=== PATIENT | male | born 1980 ===

== ENCOUNTER 2020-07-29 12:23 | Inpatient (IN) | payer OTHER ==
[2020-07-29] MEDS ORDERED: SODIUM CHLORIDE 0.9% 1,000 ML IV STA ×2 (13:38)
[2020-07-29] MEDS ORDERED: THIAMINE 100 MG/ML 2 ML VIAL IM STA (13:39)
[2020-07-29] MEDS ORDERED: LORazepam 2 MG/ML INJ IV PRN (13:39)
[2020-07-29] MEDS: LORazepam 2 MG/ML INJ IV PRN ×5 (13:48→21:32)
--- NOTE | 2020-07-29 13:58 | ED ---
Seizure HPI - General Chief Complaint: Seizure Stated Complaint: Seizure-alcoholism Time Seen by Provider: 07/29/20 12:30 Source: patient, family Mode of arrival: wheelchair Limitations: no limitations - History of Present Illness Initial Comments: Patient is a 40-year-old male with past medical history of alcohol abuse who presents emergency department after he had a alcohol withdrawal seizure last night. Mother is at bedside and helps provide history. States that he normally drinks a pint and a fifth daily. They were attempting to wean the patient off of alcohol as he was reportedly supposed to go to take her heart at noon today. States that yesterday he drank a fifth however he started at 8 AM and drink slowly throughout the day. Around 1 AM the patient's sustained a 2 minute. Tonic-clonic seizure. Mother states that he did sustain a fall with possible head injury. Reports that she began giving him alcohol that she had stored in t he house as she thought that this was the reason why he was seizing. Patient has been drinking since that time and they did report to [place] at noon today. Due to the reported seizure, they referred him to the emergency department - Related Data Home Medications Medication Instructions Recorded Confirmed Biotin 5 mg PO DAILY 07/29/20 07/29/20 Gabapentin [Neurontin] 300 mg PO DIRECTED 07/29/20 07/29/20 Multivitamins, Thera [Multivitamin 1 tab PO DAILY 07/29/20 07/29/20 (formulary)] Sertraline [Zoloft] 25 mg PO DAILY 07/29/20 07/29/20 hydrOXYzine HCL [Atarax] 25 mg PO QID PRN 07/29/20 07/29/20 Allergies Allergy/AdvReac Type Severity Reaction Status Date / Time No Known Allergies Allergy Verified 07/29/20 16:34 Review of Systems ROS Statement: Those systems with pertinent positive or pertinent negative responses have been documented in the HPI. ROS Other: All systems not noted in ROS Statement are negative. Past Medical History Past Medical History: No Reported History History of Any Multi-Drug Resistant Organisms: None Reported Additional Past Surgical History / Comment(s): facial surgery Past Psychological History: Depression Smoking Status: Never smoker Past Alcohol Use History: Abuse Past Drug Use History: None Reported General Exam Limitations: altered mental status General appearance: alert, in no apparent distress, appears intoxicated Head exam: Present: atraumatic, normocephalic, normal inspection Eye exam: Present: normal appearance, PERRL, EOMI. Absent: scleral icterus, conjunctival injection, periorbital swelling ENT exam: Present: normal exam, mucous membranes moist Neck exam: Present: normal inspection. Absent: tenderness, meningismus, lymp hadenopathy Respiratory exam: Present: normal lung sounds bilaterally. Absent: respiratory distress, wheezes, rales, rhonchi, stridor Cardiovascular Exam: Present: regular rate, normal rhythm, normal heart sounds. Absent: systolic murmur, diastolic murmur, rubs, gallop, clicks GI/Abdominal exam: Present: soft, normal bowel sounds. Absent: distended, tenderness, guarding, rebound, rigid Extremities exam: Present: normal inspection, full ROM, normal capillary refill. Absent: tenderness, pedal edema, joint swelling, calf tenderness Back exam: Present: normal inspection Neurological exam: Present: alert, altered, CN II-XII intact Psychiatric exam: Present: normal affect, normal mood Skin exam: Present: warm, intact, normal color, diaphoretic. Absent: rash Course Vital Signs 07/29/20 07/29/20 07/29/20 12:28 14:51 17:00 Temperature 98.4 F Pulse Rate 76 57 L 65 Respiratory 16 18 18 Rate Blood Pressure 142/96 107/61 145/98 O2 Sat by Pulse 96 Oximetry 07/29/20 07/29/20 18:44 20:07 Temperature 98.8 F Pulse Rate 64 Respiratory 17 18 Rate Blood Pressure 118/68 O2 Sat by Pulse Oximetry Medical Decision Making - Medical Decision Making Upon arrival patient was placed in room 18. A thorough history and physical exam was performed 2 L of saline is administered followed by 100 mL per hour. Patient started on alcohol withdrawal protocol. Laboratory studies are conducted. Lactic acid 2.8. Alcohol 349. CT of the brain and spine is performed due to the reported falls which demonstrates no acute process. His ulcer discussed with the patient and his other. Patient be admitted to [facility] physicians. Spoke with Dr. Dolan who agreed to admit the patient. - Lab Data Result diagrams: 08/04/20 03:24 08/04/20 03:24 Lab Results 07/29/20 07/29/20 07/29/20 Range/Units 13:42 13:42 13:42 WBC 3.9 (3.8-10.6) k/uL RBC 4.50 (4.30-5.90) m/uL Hgb 15.7 (13.0-17.5) gm/dL Hct 44.8 (39.0-53.0) % MCV 99.6 (80.0-100.0) fL MCH 34.8 (25.0-35.0) pg MCHC 35.0 (31.0-37.0) g/dL RDW 12.7 (11.5-15.5) % Plt Count 109 L (150-450) k/uL MPV 7.8 Neutrophils % 57 % Lymphocytes % 35 % Monocytes % 6 % Eosinophils % 1 % Basophils % 1 % Neutrophils # 2.2 (1.3-7.7) k/uL Lymphocytes # 1.3 (1.0-4.8) k/uL Monocytes # 0.2 (0-1.0) k/uL Eosinophils # 0.0 (0-0.7) k/uL Basophils # 0.0 (0-0.2) k/uL Sodium 138 (137-145) mmol/L Potassium 4.4 (3.5-5.1) mmol/L Chloride 100 (98-107) mmol/L Carbon Dioxide 29 (22-30) mmol/L Anion Gap 9 mmol/L BUN 6 L (9-20) mg/dL Creatinine 0.62 L (0.66-1.25) mg/dL Est GFR (CKD-EPI)AfAm >90 (>60 ml/min/1.73 sqM) Est GFR (CKD-EPI)NonAf >90 (>60 ml/min/1.73 sqM) Glucose 104 H (74-99) mg/dL Lactic Ac Sepsis Rflx Plasma Lactic Acid Danny (0.7-2.0) mmol/L Calcium 8.3 L (8.4-10.2) mg/dL Magnesium 2.1 (1.6-2.3) mg/dL Total Bilirubin 1.1 (0.2-1.3) mg/dL AST 183 H (17-59) U/L ALT 91 H (4-49) U/L Alkaline Phosphatase 77 (38-126) U/L Total Protein 7.0 (6.3-8.2) g/dL Albumin 4.4 (3.5-5.0) g/dL Urine Color Yellow Urine Appearance Clear (Clear) Urine pH 6.5 (5.0-8.0) Ur Specific [place] 1.008 (1.001-1.035) Urine Protein Negative (Negative) Urine Glucose (UA) Negative (Negative) Urine Ketones Negative (Negative) Urine Blood Negative (Negative) Urine Nitrite Negative (Negative) Urine Bilirubin Negative (Negative) Urine Urobilinogen <2.0 (<2.0) mg/dL Ur Leukocyte Esterase Negative (Negative) Urine Opiates Screen Not Detected (NotDetected) Ur Oxycodone Screen Not Detected (NotDetected) Urine Methadone Screen Not Detected (NotDetected) Ur Propoxyphene Screen Not Detected (NotDetected) Ur Barbiturates Screen Not Detected (NotDetected) U Tricyclic Antidepress Not Detected (NotDetected) Ur Phencyclidine Scrn Not Detected (NotDetected) Ur Amphetamines Screen Not Detected (NotDetected) U Methamphetamines Scrn Not Detected (NotDetected) U Benzodiazepines Scrn Not Detected (NotDetected) Urine Cocaine Screen Not Detected (NotDetected) U Marijuana (THC) Screen Not Detected (NotDetected) Serum Alcohol 349 H* mg/dL 07/29/20 07/29/20 Range/Units 13:42 14:29 WBC (3.8-10.6) k/uL RBC (4.30-5.90) m/uL Hgb (13.0-17.5) gm/dL Hct (39.0-53.0) % MCV (80.0-100.0) fL MCH (25.0-35.0) pg MCHC (31.0-37.0) g/dL RDW (11.5-15.5) % Plt Count (150-450) k/uL MPV Neutrophils % % Lymphocytes % % Monocytes % % Eosinophils % % Basophils % % Neutrophils # (1.3-7.7) k/uL Lymphocytes # (1.0-4.8) k/uL Monocytes # (0-1.0) k/uL Eosinophils # (0-0.7) k/uL Basophils # (0-0.2) k/uL Sodium (137-145) mmol/L Potassium (3.5-5.1) mmol/L Chloride (98-107) mmol/L Carbon Dioxide (22-30) mmol/L Anion Gap mmol/L BUN (9-20) mg/dL Creatinine (0.66-1.25) mg/dL Est GFR (CKD-EPI)AfAm (>60 ml/min/1.73 sqM) Est GFR (CKD-EPI)NonAf (>60 ml/min/1.73 sqM) Glucose (74-99) mg/dL Lactic Ac Sepsis Rflx Y Plasma Lactic Acid Danny 2.8 H* (0.7-2.0) mmol/L Calcium (8.4-10.2) mg/dL Magnesium (1.6-2.3) mg/dL Total Bilirubin (0.2-1.3) mg/dL AST (17-59) U/L ALT (4-49) U/L Alkaline Phosphatase (38-126) U/L Total Protein (6.3-8.2) g/dL Albumin (3.5-5.0) g/dL Urine Color Urine Appearance (Clear) Urine pH (5.0-8.0) Ur Specific [place] (1.001-1.035) Urine Protein (Negative) Urine Glucose (UA) (Negative) Urine Ketones (Negative) Urine Blood (Negative) Urine Nitrite (Negative) Urine Bilirubin (Negative) Urine Urobilinogen (<2.0) mg/dL Ur Leukocyte Esterase (Negative) Urine Opiates Screen (NotDetected) Ur Oxycodone Screen (NotDetected) Urine Methadone Screen (NotDetected) Ur Propoxyphene Screen (NotDetected) Ur Barbiturates Screen (NotDetected) U Tricyclic Antidepress (NotDetected) Ur Phencyclidine Scrn (NotDetected) Ur Amphetamines Screen (NotDetected) U Methamphetamines Scrn (NotDetected) U Benzodiazepines Scrn (NotDetected) Urine Cocaine Screen (NotDetected) U Marijuana (THC) Screen (NotDetected) Serum Alcohol mg/dL - EKG Data EKG Comments: EKG demonstrates a sinus rhythm with a ventricular rate of 63. OR interval 162. QRS 120. QTC of 470. No acute ST segment elevations or depressions Disposition Clinical Impression: New onset seizure, Alcohol abuse, Fall Disposition: ADMITTED IP TO THIS HOSP Condition: Serious Is patient prescribed a controlled substance at d/c from ED?: No Decision to Admit Reason: Admit from EC Decision Date: 07/29/20 Decision Time: 15:18
[2020-07-29 14:04] LABS: Basophils % (A) 1 %; Eosinophils % (A) 1 %; HCT 44.8 % (39.0-53.0); HGB 15.7 gm/dL (13.0-17.5); Lymphocytes # (A) 1.3 k/uL (1.0-4.8); Lymphocytes % (A) 35 %; MCH 34.8 pg (25.0-35.0); MCV 99.6 fL (80.0-100.0); Mean Platelet Volume 7.8; Monocytes # (A) 0.2 k/uL (0-1.0); Monocytes % (A) 6 %; Neutrophils # (A) 2.2 k/uL (1.3-7.7); Neutrophils % (A) 57 %; Platelet Count 109 k/uL (150-450); RDW 12.7 % (11.5-15.5); WBC 3.9 k/uL (3.8-10.6)
[2020-07-29 14:17] LABS: ALT 91 U/L (4-49); AST 183 U/L (17-59); African American GFR (CKD) >90 (>60 ml/min/1.73 sqM); Albumin 4.4 g/dL (3.5-5.0); Alkaline Phosphatase 77 U/L (38-126); Anion Gap 9 mmol/L; Blood Urea Nitrogen 6 mg/dL (9-20); Calcium 8.3 mg/dL (8.4-10.2); Carbon Dioxide 29 mmol/L (22-30); Chloride 100 mmol/L (98-107); Glucose 104 mg/dL (74-99); Magnesium 2.1 mg/dL (1.6-2.3); Non-African American GFR(CKD) >90 (>60 ml/min/1.73 sqM); Potassium 4.4 mmol/L (3.5-5.1); Sodium 138 mmol/L (137-145); Total Bilirubin 1.1 mg/dL (0.2-1.3)
[2020-07-29 14:30] LABS: Alcohol 349 mg/dL
--- NOTE | 2020-07-29 14:51 | CT ---
EXAMINATION TYPE: CT brain devi lam con DATE OF EXAM: 07/29/2020 COMPARISON: NONE HISTORY: Fall, seizure, alcoholism. Headache and neck pain. CT DLP: 1547 mGycm. Automated Exposure Control for Dose Reduction was Utilized. TECHNIQUE: CT scan of the head and cervical spine are performed without contrast. FINDINGS: There is no acute intracranial hemorrhage or midline shift identified. Mild ventricular a nd sulcal prominence somewhat prominent for patient's chronologic age. Small left frontoparietal acut e scalp hematoma axial image 39. The calvarium is intact. The globes are intact and the visualized si nuses are clear. Cervical spine is visualized in its entirety from C1 through upper thoracic levels and demonstrates s light grade 1 retrolisthesis C4 on C5 and C5 on C6 without evidence of acute fracture or dislocation. Prevertebral soft tissue appears within normal limits. The C1-C2 articulation is within normal [place] its on the coronal images. Slight underlying scoliotic curvature on coronal images. Mild to moderate disc space narrowing with posterior spur disc complex effacing the anterior thecal sac at C6-C7 leve l sagittal image 39 for reference. Vertebral body heights are maintained. Review of axial images shows normal sized thyroid. Lung apices show no pneumothorax. IMPRESSION: 1. There is no acute fracture or dislocation evident in the cervical spine. 2. No acute intracranial hemorrhage or midline shift is seen. Small focal left frontoparietal acute s calp hematoma.
[2020-07-29] MEDS ORDERED: NALOXONE 0.4 MG/ML 1 ML VIAL IV PRN ×2 (15:18→15:31)
[2020-07-29] MEDS ORDERED: ONDANSETRON 4 MG/2 ML VIAL IVP PRN ×2 (15:18→15:28)
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
[2020-07-29] MEDS ORDERED: chlordiazePOXIDE 25 MG CAP PO SCH (18:00)
[2020-07-29 19:23] LABS: Appearance,Urine Clear (Clear); Bilirubin,Urine Negative (Negative); Blood,Urine Negative (Negative); Color,Urine Yellow; Glucose,Urine (UA) Negative (Negative); Ketones,Urine Negative (Negative); Leukocyte Esterase,Urine Negative (Negative); Nitrite,Urine Negative (Negative); PH, Urine 6.5 (5.0-8.0); Protein,Urine Negative (Negative); Specific Gravity,Urine 1.008 (1.001-1.035); Urobilinogen,Urine <2.0 mg/dL (<2.0)
[2020-07-29 19:34] LABS: Amphetamine Screen,Urine Not Detected (NotDetected); Barbiturate Screen,Urine Not Detected (NotDetected); Benzodiazepines Screen,Urine Not Detected (NotDetected); Cocaine Screen,Urine Not Detected (NotDetected); Methadone Screen, Urine Not Detected (NotDetected); Opiate Screen,Urine Not Detected (NotDetected); Oxycodone Screen, Urine Not Detected (NotDetected); Phencyclidine Screen,Urine Not Detected (NotDetected); Tricyclic Antidepressant,Urine Not Detected (NotDetected); Urn Cannabinoid Scrn Not Detected (NotDetected)
[2020-07-29] MEDS ORDERED: LORazepam 2 MG/ML INJ IV STA (22:10)
[2020-07-29] MEDS ORDERED: SODIUM CHLORIDE 0.9% 1,000 ML IV ONE (23:03)
[2020-07-29] MEDS: THIAMINE 100 MG TAB PO SCH (23:13)
[2020-07-30] MEDS ORDERED: LORazepam 2 MG/ML INJ IV STA ×2 (00:33→10:18)
[2020-07-30] MEDS: LORazepam 2 MG/ML INJ IV STA ×2 (00:39→09:03)
[2020-07-30] MEDS: LORazepam 2 MG/ML INJ IV PRN ×12 (01:51→23:10)
[2020-07-30 04:07] LABS: Glucose,Whole Blood 84 mg/dL (75-99)
[2020-07-30 06:42] LABS: Basophils % (A) 1 %; Eosinophils # (A) 0.1 k/uL (0-0.7); Eosinophils % (A) 3 %; HCT 36.3 % (39.0-53.0); HGB 13.1 gm/dL (13.0-17.5); Lymphocytes # (A) 0.8 k/uL (1.0-4.8); Lymphocytes % (A) 23 %; MCH 35.8 pg (25.0-35.0); MCHC 36.1 g/dL (31.0-37.0); MCV 99.4 fL (80.0-100.0); Mean Platelet Volume 9.9; Monocytes # (A) 0.2 k/uL (0-1.0); Monocytes % (A) 6 %; Neutrophils # (A) 2.1 k/uL (1.3-7.7); Neutrophils % (A) 66 %; RBC 3.65 m/uL (4.30-5.90); RDW 12.7 % (11.5-15.5); WBC 3.2 k/uL (3.8-10.6)
[2020-07-30 06:43] LABS: Prothrombin Time 10.7 sec (9.0-12.0)
[2020-07-30 06:46] LABS: African American GFR (CKD) >90 (>60 ml/min/1.73 sqM); Anion Gap 6 mmol/L; Blood Urea Nitrogen 4 mg/dL (9-20); Calcium 7.8 mg/dL (8.4-10.2); Carbon Dioxide 26 mmol/L (22-30); Chloride 102 mmol/L (98-107); Glucose 92 mg/dL (74-99); Magnesium 1.5 mg/dL (1.6-2.3); Non-African American GFR(CKD) >90 (>60 ml/min/1.73 sqM); Sodium 134 mmol/L (137-145)
[2020-07-30 06:50] LABS: Platelet Count 72 k/uL (150-450)
[2020-07-30 07:04] LABS: Lymphocytes # (M) 0.67 k/uL (1.0-4.8); Monocytes # (M) 0.32 k/uL (0-1.0); Neutrophils # (M) 2.21 k/uL (1.3-7.7); Neutrophils % (M) 69 %; Nucleated Red Blood Cells 0 /100 WBC (0-0); Total Cells Counted 100
[2020-07-30] MEDS: THIAMINE 100 MG TAB PO SCH ×3 (09:53→18:01)
[2020-07-30] MEDS: MULTIVITAMINS, THERA 1 EACH TAB PO SCH (09:53)
[2020-07-30] MEDS: FOLIC ACID 1 MG TAB PO SCH (09:53)
[2020-07-30] MEDS: ENOXAPARIN 40 MG/0.4 ML SYRINGE SQ SCH (10:14)
[2020-07-30] MEDS ORDERED: PHENobarbital SODIUM 130 MG/ML 1 ML VIAL IM STA (10:27)
[2020-07-30] MEDS ORDERED: RX INFO: IV CONTRAST WAS GIVEN 1 EACH MISC MISCELLANE PRN (10:43)
[2020-07-30] MEDS: DEXMEDETOMIDINE/0.9% NACL(PMX) 400 MCG in EMPTY BAG 1 BAG IV SCH ×3 (10:46→22:57)
[2020-07-30] MEDS: DEXTROSE 5%-0.45% NACL 1,000 ML IV SCH (11:44)
--- NOTE | 2020-07-30 14:16 | P.CNPUL ---
History of Present Illness Consult date: 07/30/20 Reason for consult: other (ICU management, acute alcohol withdrawal.) Chief complaint: Alcohol withdrawal History of present illness: This is a 40-year-old white male, history of alcohol abuse, patient has been drinking fifth plus a pint of hard liquor daily for the last 5 months. Patient is also known to have history of schizoaffective disorder. And has been treated with Zyprexa she hasn't been taking. Patient stopped drinking about 2 days ago. And last night the patient was brought in with a witnessed alcohol withdrawal seizure. Patient had a witnessed tonic-clonic seizure and he was supposed to report to [place] sometime today regarding his alcohol is him and alcohol withdrawal. Due to the reported seizure, patient mother brought him to ER last night. Patient was admitted initially as an overflow to the ICU, but this morning the patient was requiring more and more sedation, he was even placed on Precedex drip, and I was asked to see him on consultation. His status was changed from selective care unit to ICU. The patient himself is a very poor historian, seems to be fairly agitated, anxious, and a bit shaky. He is presently on Precedex, lorazepam, and he is also on phenobarbital. Patient is on room air, not in any respiratory distress. Review of Systems ROS unobtainable: due to mental status Past Medical History Past Medical History: No Reported History History of Any Multi-Drug Resistant Organisms: None Reported Additional Past Surgical History / Comment(s): facial surgery Past Psychological History: Depression Smoking Status: Never smoker, Unknown if ever smoked Past Alcohol Use History: Abuse Past Drug Use History: None Reported Medications and Allergies Home Medications Medication Instructions Recorded Confirmed Type Biotin 5 mg PO DAILY 07/29/20 07/29/20 History Gabapentin [Neurontin] 300 mg PO DIRECTED 07/29/20 07/29/20 History Multivitamins, Thera [Multivitamin 1 tab PO DAILY 07/29/20 07/29/20 History (formulary)] Sertraline [Zoloft] 25 mg PO DAILY 07/29/20 07/29/20 History hydrOXYzine HCL [Atarax] 25 mg PO QID PRN 07/29/20 07/29/20 History Allergies Allergy/AdvReac Type Severity Reaction Status Date / Time No Known Allergies Allergy Verified 07/29/20 16:34 Physical Exam Vitals: Vital Signs Temp Pulse Pulse Resp BP BP Pulse Ox 07/30/20 12:00 97.7 F 71 16 141/93 95 07/30/20 11:00 80 12 144/99 96 07/30/20 10:00 140 H 41 H 145/91 95 07/30/20 09:00 68 14 140/129 95 07/30/20 08:00 98.2 F 101 H 16 113/91 96 07/30/20 04:37 98.1 F 67 15 139/90 95 07/29/20 20:45 98.1 F 70 16 137/78 98 07/29/20 20:07 18 07/29/20 18:44 98.8 F 64 17 118/68 07/29/20 17:00 65 18 145/98 07/29/20 14:51 57 L 18 107/61 Intake and Output 07/29/20 07/30/20 07/30/20 22:59 06:59 14:59 Intake Total 200 29.257 Output Total 1500 1100 Balance -1500 -900 29.257 Intake: IV 200 Sodium Chloride 0.9% 1, 200 000 ml @ 100 mls/hr IV . Q10H [facility] Rx#:[id number] Intake, IV Titration 29.257 Amount Dexmedetomidine/0.9% NaCl 29.257 (Pmx) 400 mcg In Empty Bag 1 bag @ Titrate IV . Q0M [facility] Rx#:[id number] Output: Urine 1500 1100 Other: Voiding Method Urinal Urinal # Voids 1 1 Weight 102.058 kg Physical Exam: Revealed a 40-year-old male anxious, slightly tremulous, in no distress. Head: Atraumatic, normocephalic. HEENT: PERRLA, EOMI, nonicteric. [Neck is supple.] [No neck masses.] [No thyromegaly.] [No JVD.] Chest: [Clear throughout, no crackles, no rhonchi, no wheezes.] Cardiac Exam: [Normal S1 and S2, no S3 gallop, no murmur.] Abdomen: [Soft, nontender, no megaly, no rebound, no guarding, normal bowel sounds.] Extremities: [No clubbing, no edema, no cyanosis.] Neurological Exam: Alert, anxious, and slightly confused Psychiatric: Anxious mood, blunt affect, and noted to be a bit confused. Results - Laboratory Findings CBC and BMP: 07/30/20 04:44 07/30/20 04:44 PT/INR, D-dimer PT 10.7 sec (9.0-12.0) 07/30/20 04:44 INR 1.0 (<1.2) 07/30/20 04:44 Abnormal lab findings: Abnormal Labs 07/29/20 07/29/20 07/29/20 13:42 13:42 13:42 WBC RBC Hct MCH Plt Count 109 L Lymphocytes # Lymphocytes # (Manual) Sodium BUN 6 L Creatinine 0.62 L Glucose 104 H Plasma Lactic Acid Danny 2.8 H* Calcium 8.3 L Magnesium AST 183 H ALT 91 H Serum Alcohol 349 H* 07/29/20 07/29/20 07/29/20 16:56 19:33 22:45 WBC RBC Hct MCH Plt Count Lymphocytes # Lymphocytes # (Manual) Sodium BUN Creatinine Glucose Plasma Lactic Acid Danny 2.9 H* 3.2 H* 2.6 H* Calcium Magnesium AST ALT Serum Alcohol 07/30/20 07/30/20 07/30/20 01:57 04:44 04:44 WBC 3.2 L RBC 3.65 L Hct 36.3 L MCH 35.8 H Plt Count 72 L Lymphocytes # 0.8 L Lymphocytes # (Manual) 0.67 L Sodium 134 L BUN 4 L Creatinine 0.57 L Glucose Plasma Lactic Acid Danny 2.1 H* Calcium 7.8 L Magnesium 1.5 L AST ALT Serum Alcohol - Diagnostic Findings Additional studies: CT of the head and cervical spine was noted to be normal. Questioned small focal left frontoparietal scalp hematoma. Assessment and Plan Assessment: Impression: Acute alcohol withdrawal Alcohol intoxication Alcohol withdrawal seizure. History of schizoaffective disorder. Acute alcohol intoxication on presentation. Recommendation: Continue present treatment plan as per the admitting physician. Continue to monitor in the ICU. Continue Precedex. Continue Ativan and phenobarbital. Consider neurologic evaluation and possibly psychiatric evaluation. Will follow while in the ICU. Time with Patient: Greater than 30
[2020-07-30] MEDS ORDERED: PHENobarbital SODIUM 130 MG/ML 1 ML VIAL IM ONE ×3 (14:30→22:30)
--- NOTE | 2020-07-30 15:11 | P.PN ---
Subjective Progress Note Date: 07/30/20 Patient was stepped up to med-surg overnight, however, due to overflow issues, went to ICU for next level of care. This AM, patient was profoundly diaphoretic, hypertensive, tremulous despite escalating doses of ativan. Level of care upgraded to ICU, and pulmonary notified of status change. Objective - Vital Signs Vital signs: Vital Signs Temp 97.7 F 07/30/20 12:00 Pulse 71 07/30/20 12:00 Resp 16 07/30/20 12:00 BP 141/93 07/30/20 12:00 Pulse Ox 95 07/30/20 12:00 Intake & Output 07/29/20 07/30/20 07/30/20 18:59 06:59 18:59 Intake Total 200 29.257 Output Total 2600 Balance -2400 29.257 Weight 102.058 kg Intake: IV 200 Sodium Chloride 0.9% 1, 200 000 ml @ 100 mls/hr IV . Q10H [facility] Rx#:[id number] Intake, IV Titration 29.257 Amount Dexmedetomidine/0.9% NaCl 29.257 (Pmx) 400 mcg In Empty Bag 1 bag @ Titrate IV . Q0M [facility] Rx#:[id number] Output: Urine 2600 Other: Voiding Method Urinal Urinal # Voids 1 - Exam Gen: awake, alert, diaphoretic, tremulous HEENT: normocephalic, atraumatic, good hearing acuity, moist mucous membranes Resp: good air exchange, breathing comfortably with no accessory muscle use, clear to auscultation without wheezes CVS: good distal perfusion x 4, regular rate and rhythm without murmurs GI: soft, NTTP, ND : no SPT, no CVAT, heaton catheter not present MSK: no pitting edema, no clubbing Neuro: non-focal, moving all extremities, bilateral hand director career services weakness L > R, intact lower extremity strength, cranial nerves II, 3, 4, 6, intact, others were not evaluated due to participation Psych: cooperative, euthymic mood - Labs CBC & Chem 7: 07/30/20 04:44 07/30/20 04:44 Labs: Abnormal Lab Results - Last 24 Hours (Table) 07/29/20 07/29/20 07/29/20 Range/Units 16:56 19:33 22:45 WBC (3.8-10.6) k/uL RBC (4.30-5.90) m/uL Hct (39.0-53.0) % MCH (25.0-35.0) pg Plt Count (150-450) k/uL Lymphocytes # (1.0-4.8) k/uL Lymphocytes # (Manual) (1.0-4.8) k/uL Sodium (137-145) mmol/L BUN (9-20) mg/dL Creatinine (0.66-1.25) mg/dL Plasma Lactic Acid Danny 2.9 H* 3.2 H* 2.6 H* (0.7-2.0) mmol/L Calcium (8.4-10.2) mg/dL Magnesium (1.6-2.3) mg/dL 07/30/20 07/30/20 07/30/20 Range/Units 01:57 04:44 04:44 WBC 3.2 L (3.8-10.6) k/uL RBC 3.65 L (4.30-5.90) m/uL Hct 36.3 L (39.0-53.0) % MCH 35.8 H (25.0-35.0) pg Plt Count 72 L (150-450) k/uL Lymphocytes # 0.8 L (1.0-4.8) k/uL Lymphocytes # (Manual) 0.67 L (1.0-4.8) k/uL Sodium 134 L (137-145) mmol/L BUN 4 L (9-20) mg/dL Creatinine 0.57 L (0.66-1.25) mg/dL Plasma Lactic Acid Danny 2.1 H* (0.7-2.0) mmol/L Calcium 7.8 L (8.4-10.2) mg/dL Magnesium 1.5 L (1.6-2.3) mg/dL Assessment and Plan Assessment: 1. Alcohol withdrawal syndrome 2. Alcohol intoxication 3. Alcohol abuse disorder, severe 4. Bilateral Handgrip Weakness 40 year old man with alcohol abuse disorder presented with Alcohol withdrawal syndrome despite ETOH level of 349, and was admitted for supervised detox. Plan: - admit to telemetry, seizure precautions - neuro checks - ativan 1mg PRN for CIWA 8-9 + ativan 2mg PRN for CIWA 10-15 + ativan 4mg PRN for CIWA > 15 - librium 25mg QID --> d/c'd on 07/30 - started on phenobarbitol taper 07/30 - started on precedex gtt 07/30 - UA/UTox = normal/negative - thiamine/folate/MVI - ETOH cessation counseling s/p withdrawal - CT C/T spine with contrast Full Code enoxaparin 40mg SQ daily
--- NOTE | 2020-07-30 16:59 | P.CNNES ---
History of Present Illness Consult date: 07/30/20 Requesting physician: Violet Adams Reason for Consult: New onset seizure History of Present Illness: Patient is a 40-year-old male came to the hospital yesterday at 12:23 AM for a seizure. Patient's mother has reported that patient normally drinks a pint and a fifth daily for the last 5 months. Patient also has reported history of schizoaffective disorder. They were attempting to wean the patient off the alcohol. The day before arrival, he drank a fifth that he started at 8 AM and drink slowly throughout the day. At around 1 AM patient sustained a 2 minute tonic-clonic seizure. Mother mentioned that he did sustain a fall with possible head injury. Patient was brought to the ER and was started on alcohol wi thdrawal protocol. Lactic acid was 2.8. Patient was placed in ICU because of requiring high dose of Precedex. Today he has received 10 mg of Ativan since 7 AM, also on maximal dose of Precedex 0.7 mg. Patient also has been started on phenobarbital because of seizure risk. Patient is in withdrawals. Patient is very shaky, tremulous, profusely sweating. Per nursing report, patient has been having full body tremoring, almost appearing like withdrawals, which patient's mother also reported, therefore uncertain if it was a seizure or just while and shakes from alcoholism/alcohol withdrawal. Patient at this time states that his that he is feeling "not great". Patient states that he is noticing generalized restlessness. He states that he has been drinking heavily on and off for several years. He does not use any drugs. Vital signs on arrival pressure 142/96, pulse rate 76, temperature 98.4 Blood test shows WBC 3.9, hemoglobin 15.7 with elevated MCV 99.6. Platelets are 109. Electrolytes are normal, renal functions normal, hepatic panel with AST 183, ALT 91, calcium 8.3. UA negative. Urine drug screen negative, blood alcohol level positive at 349. Gongora virus PCR negative. CT head showed no acute fracture or dislocation. No acute intracranial hemorrhage or midline shift. Small focal left frontoparietal acute scalp hematoma. EKG shows normal sinus rhythm, left anterior fascicular block. Review of Systems Patient denies headache. ROS unobtainable: due to mental status Past Medical History Past Medical History: No Reported History History of Any Multi-Drug Resistant Organisms: None Reported Additional Past Surgical History / Comment(s): facial surgery Past Psychological History: Depression Smoking Status: Never smoker, Unknown if ever smoked Past Alcohol Use History: Abuse Past Drug Use History: None Reported Medications and Allergies Home Medications Medication Instructions Recorded Confirmed Type Biotin 5 mg PO DAILY 07/29/20 07/29/20 History Gabapentin [Neurontin] 300 mg PO DIRECTED 07/29/20 07/29/20 History Multivitamins, Thera [Multivitamin 1 tab PO DAILY 07/29/20 07/29/20 History (formulary)] Sertraline [Zoloft] 25 mg PO DAILY 07/29/20 07/29/20 History hydrOXYzine HCL [Atarax] 25 mg PO QID PRN 07/29/20 07/29/20 History Allergies Allergy/AdvReac Type Severity Reaction Status Date / Time No Known Allergies Allergy Verified 07/29/20 16:34 Physical Examination - Vital Signs Vital Signs: Vital Signs Temp Pulse Pulse Resp BP BP Pulse Ox 07/30/20 12:00 97.7 F 71 16 141/93 95 07/30/20 11:00 80 12 144/99 96 07/30/20 10:00 140 H 41 H 145/91 95 07/30/20 09:00 68 14 140/129 95 07/30/20 08:00 98.2 F 101 H 16 113/91 96 07/30/20 04:37 98.1 F 67 15 139/90 95 07/29/20 20:45 98.1 F 70 16 137/78 98 07/29/20 20:07 18 07/29/20 18:44 98.8 F 64 17 118/68 07/29/20 17:00 65 18 145/98 Intake and Output 07/29/20 07/30/20 07/30/20 22:59 06:59 14:59 Intake Total 200 29.257 Output Total 1500 1100 Balance -1500 -900 29.257 Intake: IV 200 Sodium Chloride 0.9% 1, 200 000 ml @ 100 mls/hr IV . Q10H [facility] Rx#:[id number] Intake, IV Titration 29.257 Amount Dexmedetomidine/0.9% NaCl 29.257 (Pmx) 400 mcg In Empty Bag 1 bag @ Titrate IV . Q0M [facility] Rx#:[id number] Output: Urine 1500 1100 Other: Voiding Method Urinal Urinal # Voids 1 1 Weight 102.058 kg On examination patient is a middle aged male, who is in obvious prodromal's, very shaky, gets worse when he gets anxious. He is profusely sweating. He knows that he is in [facility] in [facility]. Speech and language functions difficult to assess but no obvious aphasia or dysarthria. On cranial exception his pupils are slightly dilated, about 6 mm reacting to 4 mm bilaterally. Visual carter appears full, face is symmetric and tongue protrudes the midline. Muscle strength appears normal, although he did not cooperate well because of all the shakes. His tone is increased, with significant tremors. Reflexes are brisk and plantars are withdrawal. Sensations is equal. He is very tremulous for [id number] testing. Bulk of muscles is normal. On general examination there is no carotid bruit, S1 and S2 audible. Abdomen soft nontender. Peripheral pulses present. Results - Laboratory Findings CBC and BMP: 07/30/20 04:44 07/30/20 04:44 Abnormal Lab Findings: Abnormal Labs 07/29/20 07/29/20 07/29/20 13:42 13:42 13:42 WBC RBC Hct MCH Plt Count 109 L Lymphocytes # Lymphocytes # (Manual) Sodium BUN 6 L Creatinine 0.62 L Glucose 104 H Plasma Lactic Acid Danny 2.8 H* Calcium 8.3 L Magnesium AST 183 H ALT 91 H Serum Alcohol 349 H* 07/29/20 07/29/20 07/29/20 16:56 19:33 22:45 WBC RBC Hct MCH Plt Count Lymphocytes # Lymphocytes # (Manual) Sodium BUN Creatinine Glucose Plasma Lactic Acid Danny 2.9 H* 3.2 H* 2.6 H* Calcium Magnesium AST ALT Serum Alcohol 07/30/20 07/30/20 07/30/20 01:57 04:44 04:44 WBC 3.2 L RBC 3.65 L Hct 36.3 L MCH 35.8 H Plt Count 72 L Lymphocytes # 0.8 L Lymphocytes # (Manual) 0.67 L Sodium 134 L BUN 4 L Creatinine 0.57 L Glucose Plasma Lactic Acid Danny 2.1 H* Calcium 7.8 L Magnesium 1.5 L AST ALT Serum Alcohol Assessment and Plan Assessment: * New onset seizure, likely from alcoholism versus alcohol withdrawal. * Delirium tremens. * History of alcoholism * Schizoaffective disorder. Plan: * Continue [facility] protocol for alcohol withdrawals. * Patient currently on Precedex, Ativan and phenobarbital as well for alcohol withdrawal and seizure prophylaxis. Patient still somewhat agitated, very shaky. * No indication for EEG, as the seizure was likely alcohol related. * We will follow clinically.
--- NOTE | 2020-07-30 19:40 | CT ---
EXAMINATION TYPE: CT CervThoracic spine w con DATE OF EXAM: 07/30/2020 COMPARISON: CT cervical spine from yesterday. HISTORY: Arm numbness. Numbness in hands. Neck and back pain. CT DLP: 1404.6 mGycm Automated exposure control for dose reduction was used. CONTRAST: Performed with IV Contrast, patient injected with 100 mL of Isovue 300. FINDINGS: CT of the entire spine shows slight dextroconvex scoliotic curvature centered upper to mid thoracic s pine. Vertebral body heights and disc space heights are fairly well maintained. Spinal canal grossly preserved. Posterior spur disc complex effaces the anterior thecal sac at C6-C7 level. Vertebral body heights and disc space heights are fairly well maintained. Imaging was only performed to mid L4 leve l. No acute fracture or dislocation is seen. No suspicious postcontrast enhancement. Paraspinal muscl e bulk is maintained. Visualized liver is markedly hypodense consistent with diffuse fatty infiltration. IMPRESSION: No acute findings are evident.
[2020-07-30] MEDS: PHENobarbital SODIUM 130 MG/ML 1 ML VIAL IV SCH (20:50)
[2020-07-31] MEDS: LORazepam 2 MG/ML INJ IV PRN ×13 (01:29→20:55)
[2020-07-31] MEDS ORDERED: PHENobarbital SODIUM 130 MG/ML 1 ML VIAL IM ONE (02:30)
[2020-07-31 04:53] LABS: ALT 76 U/L (4-49); AST 128 U/L (17-59); African American GFR (CKD) >90 (>60 ml/min/1.73 sqM); Albumin 3.1 g/dL (3.5-5.0); Alkaline Phosphatase 53 U/L (38-126); Anion Gap 7 mmol/L; Blood Urea Nitrogen 4 mg/dL (9-20); Calcium 8.3 mg/dL (8.4-10.2); Carbon Dioxide 25 mmol/L (22-30); Chloride 101 mmol/L (98-107); Glucose 125 mg/dL (74-99); Magnesium 1.7 mg/dL (1.6-2.3); Non-African American GFR(CKD) >90 (>60 ml/min/1.73 sqM); Potassium 3.4 mmol/L (3.5-5.1); Sodium 133 mmol/L (137-145); Total Bilirubin 1.3 mg/dL (0.2-1.3); Total Protein 5.3 g/dL (6.3-8.2)
[2020-07-31 05:05] LABS: Basophils % (A) 1 %; Eosinophils # (A) 0.1 k/uL (0-0.7); Eosinophils % (A) 2 %; HCT 38.5 % (39.0-53.0); HGB 12.7 gm/dL (13.0-17.5); Lymphocytes # (A) 0.5 k/uL (1.0-4.8); Lymphocytes % (A) 17 %; MCH 33.1 pg (25.0-35.0); MCV 100.2 fL (80.0-100.0); Mean Platelet Volume 8.5; Monocytes # (A) 0.2 k/uL (0-1.0); Monocytes % (A) 6 %; Neutrophils # (A) 2.3 k/uL (1.3-7.7); Neutrophils % (A) 73 %; RBC 3.85 m/uL (4.30-5.90); RDW 13.1 % (11.5-15.5); WBC 3.1 k/uL (3.8-10.6)
[2020-07-31] MEDS ORDERED: Potassium Replacement Protocol 1 EACH MISC MISCELLANE PRN (05:17)
[2020-07-31] MEDS ORDERED: Magnesium Replacement Protocol 1 EACH MISC MISCELLANE PRN (05:18)
[2020-07-31 05:19] LABS: Platelet Count 74 k/uL (150-450)
[2020-07-31] MEDS: POTASSIUM CHLORIDE 10 MEQ in WATER FOR INJECTION 1 100ML.BAG IVPB SCH ×4 (05:32→09:26)
[2020-07-31] MEDS: MAGNESIUM SULFATE-D5W PMX 1 GM in DEXTROSE/WATER 1 100ML.BAG IVPB SCH ×2 (05:58→07:03)
[2020-07-31] MEDS: THIAMINE 100 MG TAB PO SCH ×2 (06:44→18:46)
[2020-07-31] MEDS: DEXMEDETOMIDINE/0.9% NACL(PMX) 400 MCG in EMPTY BAG 1 BAG IV SCH ×3 (06:47→20:56)
[2020-07-31] MEDS: PHENobarbital SODIUM 130 MG/ML 1 ML VIAL IV SCH ×2 (08:00→20:55)
[2020-07-31] MEDS: FOLIC ACID 1 MG TAB PO SCH (08:00)
[2020-07-31] MEDS: ENOXAPARIN 40 MG/0.4 ML SYRINGE SQ SCH (08:00)
[2020-07-31] MEDS: MULTIVITAMINS, THERA 1 EACH TAB PO SCH (08:00)
--- NOTE | 2020-07-31 10:31 | P.PN ---
Subjective Progress Note Date: 07/31/20 Had episodes of tremulousness, diaphoresis this AM, but mentation was clear. dex gtt increased to 0.6, then to 0.7. Objective - Vital Signs Vital signs: Vital Signs Temp 98.1 F 07/31/20 08:00 Pulse 59 L 07/31/20 09:00 Resp 15 07/31/20 09:00 BP 156/88 07/31/20 09:00 Pulse Ox 97 07/31/20 09:00 Intake & Output 07/30/20 07/31/20 07/31/20 18:59 06:59 18:59 Intake Total 940.101 7392.378 669.205 Output Total 880 3235 705 Balance -91.806 -906.622 -35.795 Weight 103.8 kg Intake: IV 700 1200 400 Dextrose 5%-0.45% NaCl 1, 700 1200 300 000 ml @ 100 mls/hr IV . Q10H [facility] Rx#:[id number] Potassium Chloride 10 meq 100 In Water For Injection 1 100ml.bag @ 100 mls/hr IVPB Q1HR [facility] Rx#: [id number] Intake, IV Titration 88.194 168.378 29.205 Amount Dexmedetomidine/0.9% NaCl 88.194 168.378 29.205 (Pmx) 400 mcg In Empty Bag 1 bag @ Titrate IV . Q0M [facility] Rx#:[id number] Oral 960 240 Output: Urine 880 3235 705 Other: Voiding Method Indwelling Catheter Indwelling Catheter Indwelling Catheter - Exam Gen: awake, alert, diaphoretic, tremulous HEENT: normocephalic, atraumatic, good hearing acuity, moist mucous membranes Resp: good air exchange, breathing comfortably with no accessory muscle use, clear to auscultation without wheezes CVS: good distal perfusion x 4, regular rate and rhythm without murmurs GI: soft, NTTP, ND : no SPT, no CVAT, heaton catheter not present MSK: no pitting edema, no clubbing Neuro: non-focal, moving all extremities, bilateral hand [employer] sports [employer] weakness L > R, intact lower extremity strength, cranial nerves II, 3, 4, 6, intact, others were not evaluated due to participation Psych: cooperative, euthymic mood - Labs CBC & Chem 7: 07/31/20 04:02 07/31/20 04:02 Labs: Abnormal Lab Results - Last 24 Hours (Table) 07/31/20 07/31/20 Range/Units 04:02 04:02 WBC 3.1 L (3.8-10.6) k/uL RBC 3.85 L (4.30-5.90) m/uL Hgb 12.7 L (13.0-17.5) gm/dL Hct 38.5 L (39.0-53.0) % MCV 100.2 H (80.0-100.0) fL Plt Count 74 L (150-450) k/uL Lymphocytes # 0.5 L (1.0-4.8) k/uL Sodium 133 L (137-145) mmol/L Potassium 3.4 L (3.5-5.1) mmol/L BUN 4 L (9-20) mg/dL Creatinine 0.53 L (0.66-1.25) mg/dL Glucose 125 H (74-99) mg/dL Calcium 8.3 L (8.4-10.2) mg/dL AST 128 H (17-59) U/L ALT 76 H (4-49) U/L Total Protein 5.3 L (6.3-8.2) g/dL Albumin 3.1 L (3.5-5.0) g/dL Assessment and Plan Assessment: 1. Alcohol withdrawal syndrome 2. Alcohol intoxication 3. Alcohol abuse disorder, severe 4. Bilateral Handgrip Weakness 40 year old man with alcohol abuse disorder presented with Alcohol withdrawal syndrome despite ETOH level of 349, and was admitted for supervised detox. Plan: - admit to telemetry, seizure precautions - neuro checks - ativan 1mg PRN for CIWA 8-9 + ativan 2mg PRN for CIWA 10-15 + ativan 4mg PRN for CIWA > 15 - librium 25mg QID --> d/c'd on 07/30 - started on phenobarbitol taper 07/30 - started on precedex gtt 07/30 - UA/UTox = normal/negative - thiamine/folate/MVI - ETOH cessation counseling s/p withdrawal - CT C/T spine with contrast = no acute pathology - consideration of MRI s/p withdrawal; spoke with mother about this on 07/30 and she indicated this is a chronic issue Full Code enoxaparin 40mg SQ daily
[2020-07-31] MEDS: DEXTROSE 5%-0.45% NACL 1,000 ML IV SCH ×2 (10:38→21:00)
[2020-07-31] MEDS ORDERED: DEXMEDETOMIDINE/0.9% NACL(PMX) 400 MCG in EMPTY BAG 1 BAG IV SCH (13:00)
--- NOTE | 2020-07-31 13:06 | P.PN ---
Subjective Progress Note Date: 07/31/20 Patient was sedated in the beginning, on waking him up, patient appears better than yesterday, less tremulous. Still very confused., Knows it is July 2020 and that he is in the hospital. States could not remember the name of the hospital. Speech is clear, but slow, prolonged latency time to answer qu estions. No obvious aphasia. Tone is increased in the arms and legs. Patient does get tremulous when he becomes anxious. Reflexes are 2+ and plantars are withdrawal. No obvious seizures. Objective - Vital Signs Vital signs: Vital Signs Temp 97.9 F 07/31/20 12:00 Pulse 85 07/31/20 12:00 Resp 14 07/31/20 12:00 BP 156/110 07/31/20 12:00 Pulse Ox 96 07/31/20 12:00 Intake & Output 07/30/20 07/31/20 07/31/20 18:59 06:59 18:59 Intake Total 278.853 2099.378 1140.000 Output Total 880 3235 1285 Balance -91.806 -906.622 -145.000 Weight 103.8 kg Intake: IV 700 1200 800 Dextrose 5%-0.45% NaCl 1, 700 1200 600 000 ml @ 100 mls/hr IV . Q10H [facility] Rx#:[id number] Potassium Chloride 10 meq 200 In Water For Injection 1 100ml.bag @ 100 mls/hr IVPB Q1HR [facility] Rx#: [id number] Intake, IV Titration 88.194 168.378 100.000 Amount Dexmedetomidine/0.9% NaCl 88.194 168.378 100.000 (Pmx) 400 mcg In Empty Bag 1 bag @ Titrate IV . Q0M [facility] Rx#:[id number] Oral 960 240 Output: Urine 880 3235 1285 Other: Voiding Method Indwelling Catheter Indwelling Catheter Indwelling Catheter - Labs CBC & Chem 7: 07/31/20 04:02 07/31/20 04:02 Labs: Abnormal Lab Results - Last 24 Hours (Table) 07/31/20 07/31/20 Range/Units 04:02 04:02 WBC 3.1 L (3.8-10.6) k/uL RBC 3.85 L (4.30-5.90) m/uL Hgb 12.7 L (13.0-17.5) gm/dL Hct 38.5 L (39.0-53.0) % MCV 100.2 H (80.0-100.0) fL Plt Count 74 L (150-450) k/uL Lymphocytes # 0.5 L (1.0-4.8) k/uL Sodium 133 L (137-145) mmol/L Potassium 3.4 L (3.5-5.1) mmol/L BUN 4 L (9-20) mg/dL Creatinine 0.53 L (0.66-1.25) mg/dL Glucose 125 H (74-99) mg/dL Calcium 8.3 L (8.4-10.2) mg/dL AST 128 H (17-59) U/L ALT 76 H (4-49) U/L Total Protein 5.3 L (6.3-8.2) g/dL Albumin 3.1 L (3.5-5.0) g/dL Assessment and Plan Assessment: * New onset seizure, likely from alcoholism versus alcohol withdrawal. * Delirium tremens. * History of alcoholism * Schizoaffective disorder. Plan: * Continue [facility] protocol for alcohol withdrawals. * Patient currently on Precedex, Ativan and phenobarbital as well for alcohol withdrawal and seizure prophylaxis. Patient appears slightly better today, less shaky. * No indication for EEG, as the seizure was likely alcohol related. * Patient should not drive for 6 months as per [place] state law, climb ladders, operate dangerous machinery or unsupervised swimming. * Neurology will sign off. Please reconsult neurology if any concerns.
--- NOTE | 2020-07-31 14:41 | P.PN ---
Subjective Progress Note Date: 07/31/20 Principal diagnosis: Alcohol withdrawal and new onset seizure This is a 40-year-old white male, history of alcohol abuse, patient has been drinking fifth plus a pint of hard liquor daily for the last 5 months. Patient is also known to have history of schizoaffective disorder. And has been treated with Zyprexa she hasn't been taking. Patient stopped drinking about 2 days ago. And last night the patient was brought in with a witnessed alcohol withdrawal seizure. Patient had a witnessed tonic-clonic seizure and he was supposed to report to [place] sometime today regarding his alcohol is him and alcohol withdrawal. Due to the reported seizure, patient mother brought him to ER last night. Patient was admitted initially as an overflow to the ICU, but this morning the patient was requiring more and more sedation, he was even placed on Precedex drip, and I was asked to see him on consultation. His status was changed from selective care unit to ICU. The patient himself is a very poor historian, seems to be fairly agitated, anxious, and a bit shaky. He is pr esently on Precedex, lorazepam, and he is also on phenobarbital. Patient is on room air, not in any respiratory distress. Patient was reevaluated today on 07/31/2020, remains in the ICU, remains on P recedex, he is on 0.7 mcg/kg per hour. No seizures since admission. Patient remains on Ativan and on phenobarbital. Continues to have relatively high CIWA score. Patient is being closely monitored in the ICU for worsening, call withdrawal. But so far seems to be doing better than expected. WBC count is 3.1 hemoglobin is 12.7. Lactulose are normal potassium is a bit low being corrected as per protocol. Renal profile is normal. Objective - Vital Signs Vital signs: Vital Signs Temp 97.9 F 07/31/20 12:00 Pulse 56 L 07/31/20 14:00 Resp 11 L 07/31/20 14:00 BP 109/75 07/31/20 14:00 Pulse Ox 96 07/31/20 13:00 Intake & Output 07/30/20 07/31/20 07/31/20 18:59 06:59 18:59 Intake Total 867.735 6959.378 1340.000 Output Total 880 3235 2125 Balance -91.806 -906.622 -785.000 Weight 103.8 kg Intake: IV 700 1200 1000 Dextrose 5%-0.45% NaCl 1, 700 1200 800 000 ml @ 100 mls/hr IV . Q10H [facility] Rx#:[id number] Potassium Chloride 10 meq 200 In Water For Injection 1 100ml.bag @ 100 mls/hr IVPB Q1HR [facility] Rx#: [id number] Intake, IV Titration 88.194 168.378 100.000 Amount Dexmedetomidine/0.9% NaCl 88.194 168.378 100.000 (Pmx) 400 mcg In Empty Bag 1 bag @ Titrate IV . Q0M [facility] Rx#:[id number] Oral 960 240 Output: Urine 880 3235 2125 Other: Voiding Method Indwelling Catheter Indwelling Catheter Indwelling Catheter - Exam Physical Exam: Revealed a 40-year-old male anxious, sleeping, in no distress, on room air. Head: Atraumatic, normocephalic. HEENT: PERRLA, EOMI, nonicteric. [Neck is supple.] [No neck masses.] [No thyromegaly.] [No JVD.] Chest: [Clear throughout, no crackles, no rhonchi, no wheezes.] Cardiac Exam: [Normal S1 and S2, no S3 gallop, no murmur.] Abdomen: [Soft, nontender, no megaly, no rebound, no guarding, normal bowel sounds.] Extremities: [No clubbing, no edema, no cyanosis.] Neurological Exam: Patient is calm and sleeping, did not get disturbed. Psychiatric: Not assessed. - Labs CBC & Chem 7: 07/31/20 04:02 07/31/20 04:02 Labs: Abnormal Lab Results - Last 24 Hours (Table) 07/31/20 07/31/20 Range/Units 04:02 04:02 WBC 3.1 L (3.8-10.6) k/uL RBC 3.85 L (4.30-5.90) m/uL Hgb 12.7 L (13.0-17.5) gm/dL Hct 38.5 L (39.0-53.0) % MCV 100.2 H (80.0-100.0) fL Plt Count 74 L (150-450) k/uL Lymphocytes # 0.5 L (1.0-4.8) k/uL Sodium 133 L (137-145) mmol/L Potassium 3.4 L (3.5-5.1) mmol/L BUN 4 L (9-20) mg/dL Creatinine 0.53 L (0.66-1.25) mg/dL Glucose 125 H (74-99) mg/dL Calcium 8.3 L (8.4-10.2) mg/dL AST 128 H (17-59) U/L ALT 76 H (4-49) U/L Total Protein 5.3 L (6.3-8.2) g/dL Albumin 3.1 L (3.5-5.0) g/dL Assessment and Plan Assessment: Impression: Acute alcohol withdrawal Alcohol intoxication Alcohol withdrawal seizure. History of schizoaffective disorder. Acute alcohol intoxication on presentation. Recommendation: Continue CIWA protocol. Continue to monitor in the ICU. Continue Precedex. I just dose accordingly. Continue Ativan and phenobarbital. Will follow while in the ICU. Time with Patient: Less than 30
[2020-07-31] MEDS ORDERED: PHENobarbital SODIUM 130 MG/ML 1 ML VIAL IM SCH ×2 (16:30)
[2020-08-01] MEDS: LORazepam 2 MG/ML INJ IV PRN ×10 (01:01→22:45)
[2020-08-01 04:17] LABS: Basophils % (A) 0 %; Eosinophils # (A) 0.1 k/uL (0-0.7); Eosinophils % (A) 2 %; HCT 40.3 % (39.0-53.0); HGB 14.4 gm/dL (13.0-17.5); Lymphocytes # (A) 0.7 k/uL (1.0-4.8); Lymphocytes % (A) 17 %; MCH 35.6 pg (25.0-35.0); MCHC 35.8 g/dL (31.0-37.0); MCV 99.5 fL (80.0-100.0); Mean Platelet Volume 8.1; Monocytes # (A) 0.3 k/uL (0-1.0); Monocytes % (A) 7 %; Neutrophils # (A) 2.7 k/uL (1.3-7.7); RBC 4.05 m/uL (4.30-5.90); RDW 12.3 % (11.5-15.5); WBC 3.8 k/uL (3.8-10.6)
[2020-08-01 04:29] LABS: African American GFR (CKD) >90 (>60 ml/min/1.73 sqM); Anion Gap 7 mmol/L; Blood Urea Nitrogen 3 mg/dL (9-20); Calcium 8.8 mg/dL (8.4-10.2); Carbon Dioxide 27 mmol/L (22-30); Chloride 101 mmol/L (98-107); Glucose 102 mg/dL (74-99); Magnesium 2.1 mg/dL (1.6-2.3); Non-African American GFR(CKD) >90 (>60 ml/min/1.73 sqM); Potassium 4.1 mmol/L (3.5-5.1); Sodium 135 mmol/L (137-145)
[2020-08-01 05:31] LABS: Platelet Count 81 k/uL (150-450)
[2020-08-01] MEDS: DEXTROSE 5%-0.45% NACL 1,000 ML IV SCH ×2 (05:37→16:40)
[2020-08-01] MEDS: ENOXAPARIN 40 MG/0.4 ML SYRINGE SQ SCH (08:10)
[2020-08-01] MEDS: MULTIVITAMINS, THERA 1 EACH TAB PO SCH (08:10)
[2020-08-01] MEDS: THIAMINE 100 MG TAB PO SCH ×2 (08:10→16:53)
[2020-08-01] MEDS: FOLIC ACID 1 MG TAB PO SCH (08:10)
[2020-08-01] MEDS: PHENobarbital SODIUM 130 MG/ML 1 ML VIAL IV SCH ×3 (08:11→22:44)
[2020-08-01] MEDS: HALOPERIDOL LACTATE 5 MG/ML 1 ML VIAL IVP PRN ×3 (09:34→19:56)
[2020-08-01] MEDS: DEXMEDETOMIDINE/0.9% NACL(PMX) 400 MCG in EMPTY BAG 1 BAG IV SCH ×2 (10:43→16:29)
--- NOTE | 2020-08-01 13:04 | P.PN ---
Subjective Progress Note Date: 08/01/20 Principal diagnosis: Alcohol withdrawal and new onset seizure This is a 40-year-old white male, history of alcohol abuse, patient has been drinking fifth plus a pint of hard liquor daily for the last 5 months. Patient is also known to have history of schizoaffective disorder. And has been treated with Zyprexa she hasn't been taking. Patient stopped drinking about 2 days ago. And last night the patient was brought in with a witnessed alcohol withdrawal seizure. Patient had a witnessed tonic-clonic seizure and he was supposed to report to [place] sometime today regarding his alcohol is him and alcohol withdrawal. Due to the reported seizure, patient mother brought him to ER last night. Patient was admitted initially as an overflow to the ICU, but this morning the patient was requiring more and more sedation, he was even placed on Precedex drip, and I was asked to see him on consultation. His status was changed from selective care unit to ICU. The patient himself is a very poor historian, seems to be fairly agitated, anxious, and a bit shaky. He is pr esently on Precedex, lorazepam, and he is also on phenobarbital. Patient is on room air, not in any respiratory distress. Patient was reevaluated today on 07/31/2020, remains in the ICU, remains on P recedex, he is on 0.7 mcg/kg per hour. No seizures since admission. Patient remains on Ativan and on phenobarbital. Continues to have relatively high CIWA score. Patient is being closely monitored in the ICU for worsening, call withdrawal. But so far seems to be doing better than expected. WBC count is 3.1 hemoglobin is 12.7. Lactulose are normal potassium is a bit low being corrected as per protocol. Renal profile is normal. Patient was reevaluated today on 08/01/2020, remains in the ICU, remains on Precedex, same dose as above, patient is requiring significant amount of Ativan and phenobarbital to keep him calm. Today I suggested trial of Haldol since the patient has history of schizoaffective disorder, and he received 2 mg of Haldol IV push, and that seems to be calming him down significantly. We'll continue the Haldol, and I will arrange for a psychiatric consultation on this patient. Clearly the patient has a significant psychiatric history, and may benefit from medications for psychosis. Labs today are basically unremarkable including normal CBC, normal basic metabolic profile and normal renal profile. Objective - Vital Signs Vital signs: Vital Signs Temp 98.1 F 08/01/20 12:00 Pulse 110 H 08/01/20 12:00 Resp 14 08/01/20 12:00 BP 105/73 08/01/20 12:00 Pulse Ox 96 08/01/20 12:00 Intake & Output 07/31/20 08/01/20 08/01/20 18:59 06:59 18:59 Intake Total 4540.000 2820.000 627.593 Output Total 3125 1525 1000 Balance 8100.338 5266.000 -372.407 Weight 101.1 kg Intake: IV 1400 1100 600 Dextrose 5%-0.45% NaCl 1, 1200 1100 600 000 ml @ 100 mls/hr IV . Q10H [facility] Rx#:[id number] Potassium Chloride 10 meq 200 In Water For Injection 1 100ml.bag @ 100 mls/hr IVPB Q1HR [facility] Rx#: [id number] Intake, IV Titration 200.000 100.000 27.593 Amount Dexmedetomidine/0.9% NaCl 200.000 100.000 27.593 (Pmx) 400 mcg In Empty Bag 1 bag @ Titrate IV . Q0M [facility] Rx#:[id number] Oral 2940 1620 Output: Urine 3125 1525 1000 Other: Voiding Method Indwelling Catheter Indwelling Catheter Indwelling Catheter - Exam Physical Exam: Revealed a 40-year-old male anxious, and seems to be diaphoretic at times easily agitated. And gets tremulous quite easily Head: Atraumatic, normocephalic. HEENT: PERRLA, EOMI, nonicteric. [Neck is supple.] [No neck masses.] [No thyromegaly.] [No JVD.] Chest: [Clear throughout, no crackles, no rhonchi, no wheezes.] Cardiac Exam: [Normal S1 and S2, no S3 gallop, no murmur.] Abdomen: [Soft, nontender, no megaly, no rebound, no guarding, normal bowel sounds.] Extremities: [No clubbing, no edema, no cyanosis.] Neurological Exam: Anxious, tremulous, diaphoretic. oriented 3. Psychiatric: Anxious mood, blunt affect, normal mental status. - Labs CBC & Chem 7: 08/01/20 03:48 08/01/20 03:48 Labs: Abnormal Lab Results - Last 24 Hours (Table) 08/01/20 08/01/20 Range/Units 03:48 03:48 RBC 4.05 L (4.30-5.90) m/uL MCH 35.6 H (25.0-35.0) pg Plt Count 81 L (150-450) k/uL Lymphocytes # 0.7 L (1.0-4.8) k/uL Sodium 135 L (137-145) mmol/L BUN 3 L (9-20) mg/dL Creatinine 0.61 L (0.66-1.25) mg/dL Glucose 102 H (74-99) mg/dL Assessment and Plan Assessment: Impression: Acute alcohol withdrawal Alcohol intoxication Alcohol withdrawal seizure. History of schizoaffective disorder. Acute alcohol intoxication on presentation. Recommendation: Continue CIWA protocol. Continue to monitor in the ICU. Continue Precedex. We will add Haldol. Will consult psychiatry. Continue Ativan and phenobarbital. Will follow while in the ICU. Time with Patient: Less than 30
[2020-08-01] MEDS ORDERED: cloNIDine 0.1 MG/24HR PATCH TRANSDERM SCH (13:30)
--- NOTE | 2020-08-01 13:38 | P.PN ---
Subjective Progress Note Date: 08/01/20 Had episodes of tremulousness, diaphoresis; dex is maxed out, phenobarb is 65mg IV BID, haldol added, still requiring q1h pushes of ativan Objective - Vital Signs Vital signs: Vital Signs Temp 98.1 F 08/01/20 12:00 Pulse 110 H 08/01/20 13:00 Resp 20 08/01/20 13:00 BP 185/169 08/01/20 13:00 Pulse Ox 96 08/01/20 13:00 Intake & Output 07/31/20 08/01/20 08/01/20 18:59 06:59 18:59 Intake Total 4540.000 2820.000 627.593 Output Total 3125 1525 1000 Balance 6854.409 3356.000 -372.407 Weight 101.1 kg Intake: IV 1400 1100 600 Dextrose 5%-0.45% NaCl 1, 1200 1100 600 000 ml @ 100 mls/hr IV . Q10H RAMESH Rx#:[id number] Potassium Chloride 10 meq 200 In Water For Injection 1 100ml.bag @ 100 mls/hr IVPB Q1HR RAMESH Rx#: [id number] Intake, IV Titration 200.000 100.000 27.593 Amount Dexmedetomidine/0.9% NaCl 200.000 100.000 27.593 (Pmx) 400 mcg In Empty Bag 1 bag @ Titrate IV . 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 Alcohol withdrawal syndrome 2. Alcohol intoxication 3. Alcohol abuse disorder, severe 4. Bilateral Handgrip Weakness 40 year old man with alcohol abuse disorder presented with Alcohol withdrawal syndrome despite ETOH level of 349, and was admitted for supervised detox. Plan: - admit to telemetry, seizure precautions - neuro checks - neurology and pulmonary consultation much appreciated - ativan 1mg PRN for CIWA 8-9 + ativan 2mg PRN for CIWA 10-15 + ativan 4mg PRN for CIWA > 15 - librium 25mg QID --> d/c'd on 07/30 - started on phenobarbitol 07/30 --> increased from 65 BID to 65 TID on 08/01 - started on precedex gtt 07/30 - started on clonidine 0.1mg PO TID on 08/01 - started on haldol 08/01 - UA/UTox = normal/negative - thiamine/folate/MVI - ETOH cessation counseling s/p withdrawal - CT C/T spine with contrast = no acute pathology - spoke with mother about this on 07/30 and she indicated this is a chronic issue, therefore will defer MRI - psych consult, pending Full Code enoxaparin 40mg SQ daily
[2020-08-02] MEDS: LORazepam 2 MG/ML INJ IV PRN ×9 (01:06→23:36)
[2020-08-02] MEDS: HALOPERIDOL LACTATE 5 MG/ML 1 ML VIAL IVP PRN ×4 (03:32→21:44)
[2020-08-02 04:59] LABS: Basophils % (A) 0 %; Eosinophils # (A) 0.1 k/uL (0-0.7); Eosinophils % (A) 3 %; HCT 40.7 % (39.0-53.0); Lymphocytes # (A) 0.6 k/uL (1.0-4.8); Lymphocytes % (A) 18 %; MCH 34.4 pg (25.0-35.0); MCHC 34.4 g/dL (31.0-37.0); MCV 100.1 fL (80.0-100.0); Monocytes # (A) 0.3 k/uL (0-1.0); Monocytes % (A) 9 %; Neutrophils # (A) 2.3 k/uL (1.3-7.7); Neutrophils % (A) 67 %; RBC 4.07 m/uL (4.30-5.90); RDW 12.6 % (11.5-15.5); WBC 3.4 k/uL (3.8-10.6)
[2020-08-02 05:01] LABS: Platelet Count 94 k/uL (150-450)
[2020-08-02] MEDS: DEXTROSE 5%-0.45% NACL 1,000 ML IV SCH ×3 (05:07→23:35)
[2020-08-02 05:17] LABS: African American GFR (CKD) >90 (>60 ml/min/1.73 sqM); Anion Gap 8 mmol/L; Blood Urea Nitrogen 5 mg/dL (9-20); Calcium 8.7 mg/dL (8.4-10.2); Carbon Dioxide 24 mmol/L (22-30); Chloride 103 mmol/L (98-107); Glucose 112 mg/dL (74-99); Non-African American GFR(CKD) >90 (>60 ml/min/1.73 sqM); Potassium 3.8 mmol/L (3.5-5.1); Sodium 135 mmol/L (137-145)
[2020-08-02] MEDS ORDERED: POTASSIUM CHLORIDE ER 20 MEQ TAB.ER PO SCH (06:00)
[2020-08-02] MEDS: THIAMINE 100 MG TAB PO SCH ×2 (07:22→15:56)
[2020-08-02] MEDS: FOLIC ACID 1 MG TAB PO SCH (08:10)
[2020-08-02] MEDS: MULTIVITAMINS, THERA 1 EACH TAB PO SCH (08:10)
[2020-08-02] MEDS: ENOXAPARIN 40 MG/0.4 ML SYRINGE SQ SCH (08:10)
[2020-08-02] MEDS: PHENobarbital SODIUM 130 MG/ML 1 ML VIAL IV SCH ×3 (10:01→21:02)
[2020-08-02] MEDS: DEXMEDETOMIDINE/0.9% NACL(PMX) 400 MCG in EMPTY BAG 1 BAG IV SCH ×2 (10:34→16:45)
--- NOTE | 2020-08-02 12:58 | P.PN ---
Subjective Progress Note Date: 08/02/20 Still requiring high doses of sedatives. Pt resting comfortably on my assessment today. Objective - Vital Signs Vital signs: Vital Signs Temp 98.4 F 08/02/20 12:00 Pulse 87 08/02/20 12:00 Resp 22 08/02/20 12:00 BP 118/77 08/02/20 12:00 Pulse Ox 98 08/02/20 12:00 Intake & Output 08/01/20 08/02/20 08/02/20 17:59 06:59 18:59 Intake Total 600 Output Total 455 Balance 145 Weight Intake: IV 600 Dextrose 5%-0.45% NaCl 1, 600 000 ml @ 100 mls/hr IV . Q10H RAMESH Rx#:[id number] Intake, IV Titration Amount Dexmedetomidine/0.9% NaCl (Pmx) 400 mcg In Empty Bag 1 bag @ Titrate IV . 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 Alcohol withdrawal syndrome 2. Alcohol intoxication 3. Alcohol abuse disorder, severe 4. Bilateral Handgrip Weakness 40 year old man with alcohol abuse disorder presented with Alcohol withdrawal syndrome despite ETOH level of 349, and was admitted for supervised detox. Plan: - admit to telemetry, seizure precautions - neuro checks - neurology and pulmonary consultation much appreciated - ativan 1mg PRN for CIWA 8-9 + ativan 2mg PRN for CIWA 10-15 + ativan 4mg PRN for CIWA > 15 - librium 25mg QID --> d/c'd on 07/30 - started on phenobarbitol 07/30 --> increased from 65 BID to 65 TID on 08/01 - started on precedex gtt 07/30 - started on clonidine 0.1mg PO TID on 08/01 - started on haldol 08/01 - UA/UTox = normal/negative - thiamine/folate/MVI - ETOH cessation counseling s/p withdrawal - CT C/T spine with contrast = no acute pathology - spoke with mother about this on 07/30 and she indicated this is a chronic issue, therefore will defer MRI - psych consult, pending Full Code enoxaparin 40mg SQ daily
--- NOTE | 2020-08-02 14:13 | P.PN ---
Subjective Progress Note Date: 08/02/20 Principal diagnosis: Alcohol withdrawal and new onset seizure This is a 40-year-old white male, history of alcohol abuse, patient has been drinking fifth plus a pint of hard liquor daily for the last 5 months. Patient is also known to have history of schizoaffective disorder. And has been treated with Zyprexa she hasn't been taking. Patient stopped drinking about 2 days ago. And last night the patient was brought in with a witnessed alcohol withdrawal seizure. Patient had a witnessed tonic-clonic seizure and he was supposed to report to [place] sometime today regarding his alcohol is him and alcohol withdrawal. Due to the reported seizure, patient mother brought him to ER last night. Patient was admitted initially as an overflow to the ICU, but this morning the patient was requiring more and more sedation, he was even placed on Precedex drip, and I was asked to see him on consultation. His status was changed from selective care unit to ICU. The patient himself is a very poor historian, seems to be fairly agitated, anxious, and a bit shaky. He is pr esently on Precedex, lorazepam, and he is also on phenobarbital. Patient is on room air, not in any respiratory distress. Patient was reevaluated today on 07/31/2020, remains in the ICU, remains on P recedex, he is on 0.7 mcg/kg per hour. No seizures since admission. Patient remains on Ativan and on phenobarbital. Continues to have relatively high CIWA score. Patient is being closely monitored in the ICU for worsening, call withdrawal. But so far seems to be doing better than expected. WBC count is 3.1 hemoglobin is 12.7. Lactulose are normal potassium is a bit low being corrected as per protocol. Renal profile is normal. Patient was reevaluated today on 08/01/2020, remains in the ICU, remains on Precedex, same dose as above, patient is requiring significant amount of Ativan and phenobarbital to keep him calm. Today I suggested trial of Haldol since the patient has history of schizoaffective disorder, and he received 2 mg of Haldol IV push, and that seems to be calming him down significantly. We'll continue the Haldol, and I will arrange for a psychiatric consultation on this patient. Clearly the patient has a significant psychiatric history, and may benefit from medications for psychosis. Labs today are basically unremarkable including normal CBC, normal basic metabolic profile and normal renal profile. Patient was reevaluated today on 08/02/2020, remains in the ICU, remains on significant amount of sedation including Precedex, Ativan, phenobarbital, and intermittently Haldol. Patient seems to be fairly calm this morning, less diaphoretic, in no distress, remains on room air. His Precedex is at 0.7 mcg/kg/m, and his IV fluid is 100 mL per hour. CBC today is relatively normal electrolytes are normal renal profile is normal, liver enzymes are slightly elev ated. Objective - Vital Signs Vital signs: Vital Signs Temp 98.4 F 08/02/20 12:00 Pulse 62 08/02/20 13:00 Resp 14 08/02/20 13:00 BP 153/102 08/02/20 13:00 Pulse Ox 98 08/02/20 13:00 Intake & Output 08/01/20 08/02/20 08/02/20 17:59 06:59 18:59 Intake Total 600 Output Total 455 Balance 145 Weight Intake: IV 600 Dextrose 5%-0.45% NaCl 1, 600 000 ml @ 100 mls/hr IV . Q10H RAMESH Rx#:[id number] Intake, IV Titration Amount Dexmedetomidine/0.9% NaCl (Pmx) 400 mcg In Empty Bag 1 bag @ Titrate IV . Q0M RAMESH Rx#:[id number] Oral Output: Urine 455 Other: Voiding Method Indwelling Catheter # Bowel Movements - Exam Physical Exam: Revealed a 40-year-old male anxious, and seems to be diaphoretic at times easily agitated. And gets tremulous quite easily Head: Atraumatic, normocephalic. HEENT: PERRLA, EOMI, nonicteric. [Neck is supple.] [No neck masses.] [No thyromegaly.] [No JVD.] Chest: [Clear throughout, no crackles, no rhonchi, no wheezes.] Cardiac Exam: [Normal S1 and S2, no S3 gallop, no murmur.] Abdomen: [Soft, nontender, no megaly, no rebound, no guarding, normal bowel sounds.] Extremities: [No clubbing, no edema, no cyanosis.] Neurological Exam: Anxious, tremulous, diaphoretic. oriented 3. Psychiatric: Anxious mood, blunt affect, normal mental status. - Labs CBC & Chem 7: 08/02/20 04:38 08/02/20 04:38 Labs: Abnormal Lab Results - Last 24 Hours (Table) 08/02/20 08/02/20 Range/Units 04:38 04:38 WBC 3.4 L (3.8-10.6) k/uL RBC 4.07 L (4.30-5.90) m/uL MCV 100.1 H (80.0-100.0) fL Plt Count 94 L (150-450) k/uL Lymphocytes # 0.6 L (1.0-4.8) k/uL Sodium 135 L (137-145) mmol/L BUN 5 L (9-20) mg/dL Creatinine 0.57 L (0.66-1.25) mg/dL Glucose 112 H (74-99) mg/dL Assessment and Plan Assessment: Impression: Acute alcohol withdrawal Alcohol intoxication Alcohol withdrawal seizure. History of schizoaffective disorder. Acute alcohol intoxication on presentation. Recommendation: Continue CIWA protocol. Continue to monitor in the ICU. Continue Precedex. Continue Haldol when necessary. Yet to be seen by psychiatry on consultation for his underlying schizoaffective disorder. Continue Ativan and phenobarbital. Will follow while in the ICU. Time with Patient: Less than 30
[2020-08-02] MEDS: cloNIDine HCL 0.1 MG TAB PO SCH ×2 (15:56→21:02)
[2020-08-03] MEDS: HALOPERIDOL LACTATE 5 MG/ML 1 ML VIAL IVP PRN ×2 (01:03→05:55)
[2020-08-03] MEDS: LORazepam 2 MG/ML INJ IV PRN ×9 (02:32→21:20)
[2020-08-03 03:53] LABS: Basophils % (A) 0 %; Eosinophils # (A) 0.1 k/uL (0-0.7); Eosinophils % (A) 3 %; HCT 40.9 % (39.0-53.0); Lymphocytes # (A) 0.7 k/uL (1.0-4.8); Lymphocytes % (A) 18 %; MCH 34.4 pg (25.0-35.0); MCHC 34.2 g/dL (31.0-37.0); MCV 100.7 fL (80.0-100.0); Mean Platelet Volume 8.4; Monocytes # (A) 0.3 k/uL (0-1.0); Monocytes % (A) 8 %; Neutrophils # (A) 2.6 k/uL (1.3-7.7); Neutrophils % (A) 68 %; Platelet Count 101 k/uL (150-450); RBC 4.06 m/uL (4.30-5.90); RDW 12.7 % (11.5-15.5); WBC 3.8 k/uL (3.8-10.6)
[2020-08-03 04:03] LABS: African American GFR (CKD) >90 (>60 ml/min/1.73 sqM); Anion Gap 5 mmol/L; Blood Urea Nitrogen 5 mg/dL (9-20); Calcium 8.7 mg/dL (8.4-10.2); Carbon Dioxide 27 mmol/L (22-30); Chloride 103 mmol/L (98-107); Glucose 131 mg/dL (74-99); Non-African American GFR(CKD) >90 (>60 ml/min/1.73 sqM); Sodium 135 mmol/L (137-145)
[2020-08-03] MEDS: ENOXAPARIN 40 MG/0.4 ML SYRINGE SQ SCH (07:43)
[2020-08-03] MEDS: THIAMINE 100 MG TAB PO SCH ×2 (07:44→16:01)
[2020-08-03] MEDS: MULTIVITAMINS, THERA 1 EACH TAB PO SCH (07:44)
[2020-08-03] MEDS: PHENobarbital SODIUM 130 MG/ML 1 ML VIAL IV SCH ×2 (07:44→16:01)
[2020-08-03] MEDS: FOLIC ACID 1 MG TAB PO SCH (07:44)
[2020-08-03] MEDS: cloNIDine HCL 0.1 MG TAB PO SCH ×3 (07:44→21:20)
--- NOTE | 2020-08-03 08:56 | P.PN ---
Subjective Progress Note Date: 08/03/20 Pt is awake and oriented. Asks if he can go home today. Has limited insight into medical issues. Psych consult pending. Precedex gtt titrated off. Objective - Vital Signs Vital signs: Vital Signs Temp 97.8 F 08/03/20 08:00 Pulse 121 H 08/03/20 08:00 Resp 29 H 08/03/20 08:00 BP 158/114 08/03/20 08:00 Pulse Ox 99 08/03/20 08:00 Intake & Output 08/02/20 08/03/20 08/03/20 18:59 06:59 18:59 Intake Total 4111.872 7589.008 Output Total 1210 2085 Balance 121.257 -808.992 Weight 100.8 kg Intake: IV 1300 1200 Dextrose 5%-0.45% NaCl 1, 1300 1200 000 ml @ 100 mls/hr IV . Q10H RAMESH Rx#:[id number] Intake, IV Titration 31.257 76.008 Amount Dexmedetomidine/0.9% NaCl 31.257 76.008 (Pmx) 400 mcg In Empty Bag 1 bag @ Titrate IV . 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 Alcohol withdrawal syndrome 2. Alcohol intoxication 3. Alcohol abuse disorder, severe 4. Bilateral Handgrip Weakness 40 year old man with alcohol abuse disorder presented with Alcohol withdrawal syndrome despite ETOH level of 349, and was admitted for supervised detox. Plan: - admit to telemetry, seizure precautions - neuro checks - neurology and pulmonary consultation much appreciated - ativan 1mg PRN for CIWA 8-9 + ativan 2mg PRN for CIWA 10-15 + ativan 4mg PRN for CIWA > 15 - librium 25mg QID --> d/c'd on 07/30 - started on phenobarbitol 07/30 --> increased from 65 BID to 65 TID on 08/01 --> 65 BID on 08/03 - started on precedex gtt 07/30 --> d/c'd 08/02 - started on clonidine 0.1mg PO TID on 08/01 - started on haldol 08/01 - UA/UTox = normal/negative - thiamine/folate/MVI - ETOH cessation counseling s/p withdrawal - CT C/T spine with contrast = no acute pathology - spoke with mother about this on 07/30 and she indicated this is a chronic issue, therefore will defer MRI - psych consult, pending Full Code enoxaparin 40mg SQ daily
[2020-08-03] MEDS: DEXTROSE 5%-0.45% NACL 1,000 ML IV SCH ×2 (09:36→16:01)
--- NOTE | 2020-08-03 09:52 | P.PN ---
Subjective Progress Note Date: 08/03/20 Principal diagnosis: Acute EtOH withdrawal, acute alcoholic withdrawal seizures This is a 40-year-old white male, history of alcohol abuse, patient has been drinking fifth plus a pint of hard liquor daily for the last 5 months. Patient is also known to have history of schizoaffective disorder. And has been treated with Zyprexa she hasn't been taking. Patient stopped drinking about 2 days ago. And last night the patient was brought in with a witnessed alcohol withdrawal seizure. Patient had a witnessed tonic-clonic seizure and he was supposed to report to [place] sometime today regarding his alcohol is him and alcohol withdrawal. Due to the reported seizure, patient mother brought him to ER last night. Patient was admitted initially as an overflow to the ICU, but this morning the patient was requiring more and more sedation, he was even placed on Precedex drip, and I was asked to see him on consultation. His status was changed from selective care unit to ICU. The patient himself is a very poor historian, seems to be fairly agitated, anxious, and a bit shaky. He is presently on Precedex, lorazepam, and he is also on phenobarbital. Patient is on room air, not in any respiratory distress. Patient was reevaluated today on 07/31/2020, remains in the ICU, remains on Precedex, he is on 0.7 mcg/kg per hour. No seizures since admission. Patient remains on Ativan and on phenobarbital. Continues to have relatively high CIWA score. Patient is being closely monitored in the ICU for worsening, call withdrawal. But so far seems to be doing better than expected. WBC count is 3.1 hemoglobin is 12.7. Lactulose are normal potassium is a bit low being corrected as per protocol. Renal profile is normal. Patient was reevaluated today on 08/01/2020, remains in the ICU, remains on Precedex, same dose as above, patient is requiring significant amount of Ativan and phenobarbital to keep him calm. Today I suggested trial of Haldol since the patient has history of schizoaffective disorder, and he received 2 mg of Haldol IV push, and that seems to be calming him down significantly. We'll continue the Haldol, and I will arrange for a psychiatric consultation on this patient. Clearly the patient has a significant psychiatric history, and may benefit from medications for psychosis. Labs today are basically unremarkable including normal CBC, normal basic metabolic profile and normal renal profile. Patient was reevaluated today on 08/02/2020, remains in the ICU, remains on significant amount of sedation including Precedex, Ativan, phenobarbital, and intermittently Haldol. Patient seems to be fairly calm this morning, less diaphoretic, in no distress, remains on room air. His Precedex is at 0.7 mcg/kg/m, and his IV fluid is 100 mL per hour. CBC today is relatively normal electrolytes are normal renal profile is normal, liver enzymes are slightly elevated. On 08/03/2020 patient seen in follow-up in intensive care unit, he is more awake, he is cooperative, he still a little shaky, he is oriented 3, answers questions appropriate, no seizure activity, he remains on the CIWA protocol. He has received 10 mg of Ativan overnight in addition to phenobarbital 65 mg 3 times daily, Precedex has been weaned off since yesterday, he's been comfortably, room air pulse ox 98%, he is on D5 half-normal seen at a rate of 100 ML per hour, his last CIWA scale from 645 this morning was 18 and is an improvement from CIWA scores at 34, 48 hours ago. Pulse ox of 99%, remains tachycardic, with a rate between 104-121, in sinus mechanism, he is afebrile. Patient is receiving thiamine and folic acid replacement. No nausea vomiting, tolerating oral diet. No acute events overnight, still on the drowsy. Objective - Vital Signs Vital signs: Vital Signs Temp 97.8 F 08/03/20 08:00 Pulse 121 H 08/03/20 08:00 Resp 29 H 08/03/20 08:00 BP 158/114 08/03/20 08:00 Pulse Ox 99 08/03/20 08:00 Intake & Output 08/02/20 08/03/20 08/03/20 18:59 06:59 18:59 Intake Total 4374.892 8334.008 Output Total 1210 2085 Balance 121.257 -808.992 Weight 100.8 kg Intake: IV 1300 1200 Dextrose 5%-0.45% NaCl 1, 1300 1200 000 ml @ 100 mls/hr IV . Q10H RAMESH Rx#:[id number] Intake, IV Titration 31.257 76.008 Amount Dexmedetomidine/0.9% NaCl 31.257 76.008 (Pmx) 400 mcg In Empty Bag 1 bag @ Titrate IV . Q0M RAMESH Rx#:[id number] Output: Urine 1210 2085 Other: Voiding Method Indwelling Catheter Indwelling Catheter Indwelling Catheter - Exam GENERAL EXAM: 40-year-old white male, normal, with pulse ox of 99%, drowsy, easily arousable, shaky comfortable in no apparent distress. HEAD: Normocephalic/atraumatic. EYES: Normal reaction of pupils, equal size. Conjunctiva pink, sclera white. NOSE: Clear with pink turbinates. THROAT: No erythema or exudates. NECK: No masses, no JVD, no thyroid enlargement, no adenopathy. CHEST: No chest wall deformity. Symmetrical expansion. LUNGS: Equal air entry with no crackles, wheeze, rhonchi or dullness. CVS: Regular rate and rhythm, normal S1 and S2, no gallops, no murmurs, no rubs ABDOMEN: Soft, nontender. No hepatosplenomegaly, normal bowel sounds, no guarding or rigidity. EXTREMITIES: No clubbing, no edema, no cyanosis, 2+ pulses and upper and lower extremities. MUSCULOSKELETAL: Muscle strength and tone normal. SPINE: No scoliosis or deformity SKIN: No rashes CENTRAL NERVOUS SYSTEM: Drowsy, arousable,. No focal deficits, tone is normal in all 4 extremities. - Labs CBC & Chem 7: 08/03/20 03:37 08/03/20 03:37 Labs: Abnormal Lab Results - Last 24 Hours (Table) 08/03/20 08/03/20 Range/Units 03:37 03:37 RBC 4.06 L (4.30-5.90) m/uL MCV 100.7 H (80.0-100.0) fL Plt Count 101 L (150-450) k/uL Lymphocytes # 0.7 L (1.0-4.8) k/uL Sodium 135 L (137-145) mmol/L BUN 5 L (9-20) mg/dL Creatinine 0.57 L (0.66-1.25) mg/dL Glucose 131 H (74-99) mg/dL Assessment and Plan Plan: Assessment: #1. Acute alcohol withdrawal syndrome #2. Acute alcohol withdrawal seizures #3. Alcohol intoxication #4. History of schizoaffective disorder Plan: Continue Ativan per CIWA protocol, continue phenobarbital, and this is being weaned down by the attending physicians, continue aspiration precautions, overall CIWA scale is improving, no seizure activity, still very drowsy and tachycardic and shaky we'll continue to monitor the patient in the ICU for another 24 hours. GI and DVT prophylaxis, following I performed a history & physical examination of the patient and discussed their management with my nurse practitioner, Tanja Silverio. I reviewed the nurse practitioner's note and agree with the documented findings and plan of care. Lung sounds are positive for clear breath sounds . The findings and the i mpression was discussed with the patient. I attest to the documentation by the nurse practitioner. Time with Patient: Less than 30
[2020-08-03] MEDS: busPIRone HCl 10 MG TAB PO PRN (16:25)
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
[2020-08-03] MEDS: OLANZapine 5 MG TAB PO SCH (20:01)
[2020-08-03] MEDS ORDERED: PHENobarbital SODIUM 130 MG/ML 1 ML VIAL IV SCH (21:00)
[2020-08-04] MEDS: LORazepam 2 MG/ML INJ IV PRN ×4 (00:15→22:24)
[2020-08-04] MEDS: DEXTROSE 5%-0.45% NACL 1,000 ML IV SCH (03:25)
[2020-08-04 03:45] LABS: HCT 38.6 % (39.0-53.0); HGB 13.1 gm/dL (13.0-17.5); MCH 34.7 pg (25.0-35.0); MCV 102.1 fL (80.0-100.0); Macrocytosis Slight; Mean Platelet Volume 8.2; Platelet Count 104 k/uL (150-450); RBC 3.78 m/uL (4.30-5.90); WBC 2.9 k/uL (3.8-10.6)
[2020-08-04 03:58] LABS: African American GFR (CKD) >90 (>60 ml/min/1.73 sqM); Anion Gap 3 mmol/L; Blood Urea Nitrogen 4 mg/dL (9-20); Calcium 8.5 mg/dL (8.4-10.2); Carbon Dioxide 27 mmol/L (22-30); Chloride 106 mmol/L (98-107); Glucose 100 mg/dL (74-99); Non-African American GFR(CKD) >90 (>60 ml/min/1.73 sqM); Potassium 3.6 mmol/L (3.5-5.1); Sodium 136 mmol/L (137-145)
[2020-08-04] MEDS: busPIRone HCl 10 MG TAB PO PRN ×2 (04:54→16:10)
[2020-08-04] MEDS ORDERED: POTASSIUM CHLORIDE ER 20 MEQ TAB.ER PO SCH (05:00)
[2020-08-04] MEDS: THIAMINE 100 MG TAB PO SCH ×2 (06:26→18:34)
[2020-08-04] MEDS: ENOXAPARIN 40 MG/0.4 ML SYRINGE SQ SCH (07:57)
[2020-08-04] MEDS: FOLIC ACID 1 MG TAB PO SCH (07:57)
[2020-08-04] MEDS: cloNIDine HCL 0.1 MG TAB PO SCH (07:57)
[2020-08-04] MEDS: MULTIVITAMINS, THERA 1 EACH TAB PO SCH (07:57)
--- NOTE | 2020-08-04 10:18 | P.PN ---
Subjective Progress Note Date: 08/04/20 Principal diagnosis: Acute EtOH withdrawal, acute alcoholic withdrawal seizures This is a 40-year-old white male, history of alcohol abuse, patient has been drinking fifth plus a pint of hard liquor daily for the last 5 months. Patient is also known to have history of schizoaffective disorder. And has been treated with Zyprexa she hasn't been taking. Patient stopped drinking about 2 days ago. And last night the patient was brought in with a witnessed alcohol withdrawal seizure. Patient had a witnessed tonic-clonic seizure and he was supposed to report to [place] sometime today regarding his alcohol is him and alcohol withdrawal. Due to the reported seizure, patient mother brought him to ER last night. Patient was admitted initially as an overflow to the ICU, but this morning the patient was requiring more and more sedation, he was even placed on Precedex drip, and I was asked to see him on consultation. His status was changed from selective care unit to ICU. The patient himself is a very poor historian, seems to be fairly agitated, anxious, and a bit shaky. He is presently on Precedex, lorazepam, and he is also on phenobarbital. Patient is on room air, not in any respiratory distress. Patient was reevaluated today on 07/31/2020, remains in the ICU, remains on Precedex, he is on 0.7 mcg/kg per hour. No seizures since admission. Patient remains on Ativan and on phenobarbital. Continues to have relatively high CIWA score. Patient is being closely monitored in the ICU for worsening, call withdrawal. But so far seems to be doing better than expected. WBC count is 3.1 hemoglobin is 12.7. Lactulose are normal potassium is a bit low being corrected as per protocol. Renal profile is normal. Patient was reevaluated today on 08/01/2020, remains in the ICU, remains on Precedex, same dose as above, patient is requiring significant amount of Ativan and phenobarbital to keep him calm. Today I suggested trial of Haldol since the patient has history of schizoaffective disorder, and he received 2 mg of Haldol IV push, and that seems to be calming him down significantly. We'll continue the Haldol, and I will arrange for a psychiatric consultation on this patient. Clearly the patient has a significant psychiatric history, and may benefit from medications for psychosis. Labs today are basically unremarkable including normal CBC, normal basic metabolic profile and normal renal profile. Patient was reevaluated today on 08/02/2020, remains in the ICU, remains on significant amount of sedation including Precedex, Ativan, phenobarbital, and intermittently Haldol. Patient seems to be fairly calm this morning, less diaphoretic, in no distress, remains on room air. His Precedex is at 0.7 mcg/kg/m, and his IV fluid is 100 mL per hour. CBC today is relatively normal electrolytes are normal renal profile is normal, liver enzymes are slightly elevated. On 08/03/2020 patient seen in follow-up in intensive care unit, he is more awake, he is cooperative, he still a little shaky, he is oriented 3, answers questions appropriate, no seizure activity, he remains on the CIWA protocol. He has received 10 mg of Ativan overnight in addition to phenobarbital 65 mg 3 times daily, Precedex has been weaned off since yesterday, he's been comfortably, room air pulse ox 98%, he is on D5 half-normal seen at a rate of 100 ML per hour, his last CIWA scale from 645 this morning was 18 and is an improvement from CIWA scores at 34, 48 hours ago. Pulse ox of 99%, remains tachycardic, with a rate between 104-121, in sinus mechanism, he is afebrile. Patient is receiving thiamine and folic acid replacement. No nausea vomiting, tolerating oral diet. No acute events overnight, still on the drowsy. On 08/04/2020 patient seen in follow-up in the intensive care unit, much more awake and alert today, oriented 3, responding appropriately, no agitation, no tremors on today's labs, patient is on room air, denies any respiratory distr ess, no shortness of breath no cough or congestion, he is on D5 half-normal seen at a rate of 100 ML per hour, he is tolerating oral diet, and this morning he ate 100% of his breakfast, he is in sinus mechanism, no tachycardia today, rate is 75-86 BPM, room air pulse ox is 97% with blood pressure stable, respirations are nonlabored, no seizure activity overnight, his last CIWA score from 8:00 this morning is down to 3, his last Ativan dose was this morning at 2:00 in the morning with 2 mg of Ativan. His had no acute events overnight, his labs have been reviewed, white blood cell, 2.9, hemoglobin is 13.1, electrolytes were unremarkable, B1 is for creatinine 0.56 Objective - Vital Signs Vital signs: Vital Signs Temp 98.2 F 08/04/20 08:00 Pulse 71 08/04/20 09:00 Resp 76 H 08/04/20 09:00 BP 137/101 08/04/20 09:00 Pulse Ox 96 08/04/20 09:00 Intake & Output 08/03/20 08/04/20 08/04/20 18:59 06:59 18:59 Intake Total 1200 1100 300 Output Total 2105 1735 235 Balance -905 -635 65 Weight 102.3 kg Intake: IV 1200 1100 300 Dextrose 5%-0.45% NaCl 1, 1200 1100 300 000 ml @ 100 mls/hr IV . Q10H [facility] Rx#:[id number] Output: Urine 2105 1735 235 Other: Voiding Method Indwelling Catheter Indwelling Catheter Indwelling Catheter # Bowel Movements 1 - Exam GENERAL EXAM: 40-year-old white male, normal, with pulse ox of 99%, awake and alert, oriented 3 comfortable in no apparent distress. HEAD: Normocephalic/atraumatic. EYES: Normal reaction of pupils, equal size. Conjunctiva pink, sclera white. NOSE: Clear with pink turbinates. THROAT: No erythema or exudates. NECK: No masses, no JVD, no thyroid enlargement, no adenopathy. CHEST: No chest wall deformity. Symmetrical expansion. LUNGS: Equal air entry with no crackles, wheeze, rhonchi or dullness. CVS: Regular rate and rhythm, normal S1 and S2, no gallops, no murmurs, no rubs ABDOMEN: Soft, nontender. No hepatosplenomegaly, normal bowel sounds, no guarding or rigidity. EXTREMITIES: No clubbing, no edema, no cyanosis, 2+ pulses and upper and lower extremities. MUSCULOSKELETAL: Muscle strength and tone normal. SPINE: No scoliosis or deformity SKIN: No rashes CENTRAL NERVOUS SYSTEM: Drowsy, arousable,. No focal deficits, tone is normal in all 4 extremities. - Labs CBC & Chem 7: 08/04/20 03:24 08/04/20 03:24 Labs: Abnormal Lab Results - Last 24 Hours (Table) 08/04/20 08/04/20 Range/Units 03:24 03:24 WBC 2.9 L (3.8-10.6) k/uL RBC 3.78 L (4.30-5.90) m/uL Hct 38.6 L (39.0-53.0) % MCV 102.1 H (80.0-100.0) fL Plt Count 104 L (150-450) k/uL Sodium 136 L (137-145) mmol/L BUN 4 L (9-20) mg/dL Creatinine 0.56 L (0.66-1.25) mg/dL Glucose 100 H (74-99) mg/dL Assessment and Plan Plan: Assessment: #1. Acute alcohol withdrawal syndrome, improved, and patient CIWA scale is down to 3 today on 08/04/2020 #2. Acute alcohol withdrawal seizures, patient has had no recurrence of seizures #3. Alcohol intoxication #4. History of schizoaffective disorder Plan: Patient is doing much better, cooperative, awake and alert, no tremors, no agitation, no seizures, no tachycardia no diaphoresis no headaches. Tolerating oral diet, no respiratory difficulties, no specific complaints, will DC the Hogan, Hep-Lock the IV fluids. Patient is stable to transfer out of intensive care unit to general medical floor today. I performed a history & physical examination of the patient and discussed their management with my nurse practitioner, Tanja Silverio. I reviewed the nurse practitioner's note and agree with the documented findings and plan of care. Lung sounds are positive for clear breath sounds . The findings and the impression was discussed with the patient. I attest to the documentation by the nurse practitioner. Time with Patient: Less than 30
[2020-08-04 10:39] VITALS: BMI 27.4
--- NOTE | 2020-08-04 11:33 | P.PN ---
Subjective Progress Note Date: 08/04/20 Pt is much more interactive today; asks questions about when he can call his mom, and when he can get up from bed and/or go home. Objective - Vital Signs Vital signs: Vital Signs Temp 98.2 F 08/04/20 08:00 Pulse 71 08/04/20 09:00 Resp 76 H 08/04/20 09:00 BP 137/101 08/04/20 09:00 Pulse Ox 96 08/04/20 09:00 Intake & Output 08/03/20 08/04/20 08/04/20 18:59 06:59 18:59 Intake Total 1200 1100 300 Output Total 2105 1735 235 Balance -905 -725 65 Weight 102.3 kg 102.3 kg Intake: IV 1200 1100 300 Dextrose 5%-0.45% NaCl 1, 1200 1100 300 000 ml @ 100 mls/hr IV . Q10H [facility] Rx#:[id number] Output: Urine 2105 1735 235 Other: Voiding Method Indwelling Catheter Indwelling Catheter Indwelling Catheter # Bowel Movements 1 - Exam Gen: awake, alert HEENT: normocephalic, atraumatic, good hearing acuity, moist mucous membranes Resp: good air exchange, breathing comfortably with no accessory muscle use, clear to auscultation without wheezes CVS: good distal perfusion x 4, regular rate and rhythm without murmurs GI: soft, NTTP, ND : no SPT, no CVAT, heaton catheter not present MSK: no pitting edema, no clubbing Neuro: non-focal, moving all extremities, hand rn social work weakness is now normalized (no longer weak) - Labs CBC & Chem 7: 08/04/20 03:24 08/04/20 03:24 Labs: Abnormal Lab Results - Last 24 Hours (Table) 08/04/20 08/04/20 Range/Units 03:24 03:24 WBC 2.9 L (3.8-10.6) k/uL RBC 3.78 L (4.30-5.90) m/uL Hct 38.6 L (39.0-53.0) % MCV 102.1 H (80.0-100.0) fL Plt Count 104 L (150-450) k/uL Sodium 136 L (137-145) mmol/L BUN 4 L (9-20) mg/dL Creatinine 0.56 L (0.66-1.25) mg/dL Glucose 100 H (74-99) mg/dL Assessment and Plan Assessment: 1. Alcohol withdrawal syndrome 2. Alcohol intoxication 3. Alcohol abuse disorder, severe 4. Bilateral Handgrip Weakness 40 year old man with alcohol abuse disorder presented with Alcohol withdrawal syndrome despite ETOH level of 349, and was admitted for supervised detox. Plan: - admit to telemetry, seizure precautions - neuro checks - neurology and pulmonary consultation much appreciated - ativan 1mg PRN for CIWA 8-9 + ativan 2mg PRN for CIWA 10-15 + ativan 4mg PRN for CIWA > 15 - librium 25mg QID --> d/c'd on 07/30 - started on phenobarbitol 07/30 --> increased from 65 BID to 65 TID on 08/01 --> 65 BID on 08/03 --> 32.4 BID on 08/04 - plan for 32.4 daily on 08/05 and 08/06, then stop - started on precedex gtt 07/30 --> d/c'd 08/02 - started on clonidine 0.1mg PO TID on 08/01 --> d/c'd on 08/04 - started on haldol 08/01 - UA/UTox = normal/negative - thiamine/folate/MVI - ETOH cessation counseling s/p withdrawal - tentative plan for [facility] for withdrawal - CT C/T spine with contrast = no acute pathology - spoke with mother about this on 07/30 and she indicated this is a chronic issue, therefore will defer MRI - psych consult, appreciate recs - re-started zyprexa - will need outpatient primary psychiatrist on discharge Full Code enoxaparin 40mg SQ daily
--- NOTE | 2020-08-04 13:19 | P.PN ---
Progress Note - Text Progress Note Date: 08/04/20 Interval history: Patient was seen today for psychiatric follow-up regarding patient's depression and alcohol use/withdrawal. Patient appears to be more awake today and more coherent in his speech and less confused. He claims that he has been taking his medications as prescribed and claims that he was able to sleep a bit better last night. He still states that he is sleeping a little bit during the day claims that he "drifts in and out of sleep". He states that his mood has been mildly improving since yesterday however continues to focus on his depression and being "isolated" when he is at home. He states that his mom is the only one that has a car and he is not able to go anywhere when he is living with her. He states that he feels frustrated with his stressors and his alcohol use. Today he states that he is thinking more about rehab and possibly going and asked several questions about the facilities. Patient CIWA scores have been improving and patient is requiring less Ativan. He states that his appetite as been gradually improving and claims that his anxiety is improved since yesterday. At this time patient denies any suicidal or homicidal ideations intent or plan. Denies any Auditory or visual hallucinations. Patient denies any side effects from the medications and has been compliant with meds. Mental status exam: General Appearance: Patient appears to be well built, stated age is alert, directable, and attempts to be cooperative. Less confused today and more awake. Behavior: No agitated behavior. Patient is calm and directable. No tremors today. Speech: Patient's speech is fluent and nonpressured. Less hesitant. Mood/Affect: Mood is improving mildly, affect is congruent and constricted. Suicidality/Homicidality: Patient denies having any suicidal or homicidal ideation intent or plan. Perceptions: Patient denies any auditory or visual hallucinations. Though content/process: There is no evidence of any delusional thought content and thought process is linear and goal-directed. Not endorsing any paranoia. Memory and concentration: AOX3, concentration improving. Judgment and insight: Poor, improving mildly Assessment: Depressive disorder unspecified rule out secondary to substance use Alcohol use disorder, severe, currently in withdrawal Anxiety disorder unspecified Plan: -At this time patient DOES meet criteria for inpatient psychiatric admission. -Would recommend the following medication changes/additions: Can continue with Zyprexa 5 mg daily at bedtime for mood/withdrawal symptoms/insomnia, added melatonin daily at bedtime for sleep. Added Prozac 20 mg daily for mood/anxiety. -Phenobarbital scheduled is currently being tapered for alcohol withdrawal, managed by primary team. -CIWA protocol with PRN Ativan for alcohol withdrawal. Continue to monitor vital signs. -tunnel worker to provide patient with outpatient mental health/psychiatry resources for appropriate follow up upon discharge -Account Administrator spoke with patient about substance abuse and the harmful effects on medical and mental health, patient verbally understood and agreed. -tunnel worker to provide patient substance use treatment resources including AA/NA meetings in the community. -tunnel worker to provide patient with access line number to call for inpatient substance rehab as patient has several questions about rehab. -Communicated plan to patient's nurse -Will continue to follow along -Please contact with any questions.
[2020-08-04] MEDS: FLUoxetine HCL 20 MG CAP PO SCH (14:14)
[2020-08-04] MEDS: ACETAMINOPHEN TAB 325 MG TAB PO PRN (15:44)
[2020-08-04] MEDS: MELATONIN 5 MG TABLET PO SCH (20:00)
[2020-08-04] MEDS: OLANZapine 5 MG TAB PO SCH (20:00)
[2020-08-05] MEDS: THIAMINE 100 MG TAB PO SCH ×2 (08:16→16:06)
[2020-08-05] MEDS: FLUoxetine HCL 20 MG CAP PO SCH (08:16)
[2020-08-05] MEDS: FOLIC ACID 1 MG TAB PO SCH (08:16)
[2020-08-05] MEDS: ACETAMINOPHEN TAB 325 MG TAB PO PRN (08:16)
[2020-08-05] MEDS: MULTIVITAMINS, THERA 1 EACH TAB PO SCH (08:17)
[2020-08-05] MEDS: ENOXAPARIN 40 MG/0.4 ML SYRINGE SQ SCH (09:07)
--- NOTE | 2020-08-05 11:06 | P.PN ---
Subjective Progress Note Date: 08/05/20 (delayed charting seen at 0930) Principal diagnosis: alcohol withdrawal Patient is a 40 yo M wtih a know hx of alcoholism and schizoaffective disorder who prestned due to new onset seizure at home while detoxing from alcohol. CT head and cervical spince showed small focal left frontoparietal acute scalp hematoma. CT cervial and thorasci spice showed no acute process, but diffuse fatty infiltration of the liver. Labatory analydsis showed lactic acidosis, thrombocytopenia, and elevated AST/ALT at 183 and 9 respectively. Dispite being in withdrawal alcohol level was 349. [place] was admitted and intially started on librium and CIWA with ativan use. His withdrawal worsened requiring precedex gtt and transition from librium to phenobarb. Neurology was consulted and felt the seizure was consistent with alcohol withdrawal and no need for antieleptic medications or EEG. He was sated on haldol on 08/01 which seemed to help with agitation. Psychiary was consutled and recommended Precedex was stopped on 08/02. he continued to improved and was no longer requiring ativan. Patient seen and examined at bedside. No chest pain, SOB, nuasea, MORA, Tremors, he is feeling anxious about withdrawing from ativan. General: non toxic, no distress, appears at stated age Derm: warm, dry Head: atraumatic, normocephalic, symmetric Eyes: EOMI, no lid lag, anicteric sclera Mouth: no lip lesion, mucus membranes moist Cardiovascular: S1S2 reg, no murmur, positive posterior tibial pulse bilateral, Lungs: CTA bilateral, no rhonchi, no rales , no accessory muscle use Abdominal: soft, nontender to palpation, no guarding, no appreciable organomegaly Ext: no gross muscle atrophy, no edema, no contractures Neuro: CN II-XI grossly intact, no focal neuro deficits, no tremors noted Psych: Alert, oriented to situation, slowed thinking, frequent blinking ETOH withdrawal with seizure - complete librium taper tomrrow, CIWA with ativan - supportive care - rehab on [facility] if patient is willing - thiamine, folic acid, and MVI - Neuro recs: no need for antiepleptic medications, no driving for 6 months Transaminits - likely due to ETOH use - repeat in 4 weeks Anxiety disorder - psych recs: no need for inpatient psych admission. zyprexa Thrombocytopenia, - likely due to alcohol abuse and liver disease Fatty infiltration of the liver - outpatient follow-up DVT prophylaxis: Lovenox Discussed with: patient, CM, nursing Anticipated discharge: in AM Anticipated discharge place: [facility] A total of 35 minutes was spent on the care of this complex patient more than 50% of the time was spent in counseling and care coordination. Objective - Vital Signs Vital signs: Vital Signs Temp 97.6 F 08/05/20 07:33 Pulse 70 08/05/20 07:33 Resp 17 08/05/20 07:33 BP 138/91 08/05/20 07:33 Pulse Ox 98 08/05/20 07:33 Intake & Output 08/04/20 08/05/20 08/05/20 18:59 06:59 18:59 Intake Total 300 948 200 Output Total 2135 Balance -1835 948 200 Weight 102.3 kg Intake: IV 300 Dextrose 5%-0.45% NaCl 1, 300 000 ml @ 100 mls/hr IV . Q10H [facility] Rx#:[id number] Oral 948 200 Output: Urine 2135 Other: Voiding Method Indwelling Catheter # Voids 4 - Labs CBC & Chem 7: 08/04/20 03:24 08/04/20 03:24
--- NOTE | 2020-08-05 13:49 | P.PN ---
Subjective Progress Note Date: 08/05/20 Principal diagnosis: Acute EtOH withdrawal, acute alcoholic withdrawal seizures This is a 40-year-old white male, history of alcohol abuse, patient has been drinking fifth plus a pint of hard liquor daily for the last 5 months. Patient is also known to have history of schizoaffective disorder. And has been treated with Zyprexa she hasn't been taking. Patient stopped drinking about 2 days ago. And last night the patient was brought in with a witnessed alcohol withdrawal seizure. Patient had a witnessed tonic-clonic seizure and he was supposed to report to [facility] sometime today regarding his alcohol is him and alcohol withdrawal. Due to the reported seizure, patient mother brought him to ER last night. Patient was admitted initially as an overflow to the ICU, but this morning the patient was requiring more and more sedation, he was even placed on Precedex drip, and I was asked to see him on consultation. His status was changed from selective care unit to ICU. The patient himself is a very poor historian, seems to be fairly agitated, anxious, and a bit shaky. He is presently on Precedex, lorazepam, and he is also on phenobarbital. Patient is on room air, not in any respiratory distress. Patient was reevaluated today on 07/31/2020, remains in the ICU, remains on Precedex, he is on 0.7 mcg/kg per hour. No seizures since admission. Patient remains on Ativan and on phenobarbital. Continues to have relatively high CIWA score. Patient is being closely monitored in the ICU for worsening, call withdrawal. But so far seems to be doing better than expected. WBC count is 3.1 hemoglobin is 12.7. Lactulose are normal potassium is a bit low being corrected as per protocol. Renal profile is normal. Patient was reevaluated today on 08/01/2020, remains in the ICU, remains on Precedex, same dose as above, patient is requiring significant amount of Ativan and phenobarbital to keep him calm. Today I suggested trial of Haldol since the patient has history of schizoaffective disorder, and he received 2 mg of Haldol IV push, and that seems to be calming him down significantly. We'll continue the Haldol, and I will arrange for a psychiatric consultation on this patient. Clearly the patient has a significant psychiatric history, and may benefit from medications for psychosis. Labs today are basically unremarkable including normal CBC, normal basic metabolic profile and normal renal profile. Patient was reevaluated today on 08/02/2020, remains in the ICU, remains on significant amount of sedation including Precedex, Ativan, phenobarbital, and intermittently Haldol. Patient seems to be fairly calm this morning, less diaphoretic, in no distress, remains on room air. His Precedex is at 0.7 mcg/kg/m, and his IV fluid is 100 mL per hour. CBC today is relatively normal electrolytes are normal renal profile is normal, liver enzymes are slightly elevated. On 08/03/2020 patient seen in follow-up in intensive care unit, he is more awake, he is cooperative, he still a little shaky, he is oriented 3, answers questions appropriate, no seizure activity, he remains on the CIWA protocol. He has received 10 mg of Ativan overnight in addition to phenobarbital 65 mg 3 times daily, Precedex has been weaned off since yesterday, he's been comfortably, room air pulse ox 98%, he is on D5 half-normal seen at a rate of 100 ML per hour, his last CIWA scale from 645 this morning was 18 and is an improvement from CIWA scores at 34, 48 hours ago. Pulse ox of 99%, remains tachycardic, with a rate between 104-121, in sinus mechanism, he is afebrile. Patient is receiving thiamine and folic acid replacement. No nausea vomiting, tolerating oral diet. No acute events overnight, still on the drowsy. On 08/04/2020 patient seen in follow-up in the intensive care unit, much more awake and alert today, oriented 3, responding appropriately, no agitation, no tremors on today's labs, patient is on room air, denies any respiratory distr ess, no shortness of breath no cough or congestion, he is on D5 half-normal seen at a rate of 100 ML per hour, he is tolerating oral diet, and this morning he ate 100% of his breakfast, he is in sinus mechanism, no tachycardia today, rate is 75-86 BPM, room air pulse ox is 97% with blood pressure stable, respirations are nonlabored, no seizure activity overnight, his last CIWA score from 8:00 this morning is down to 3, his last Ativan dose was this morning at 2:00 in the morning with 2 mg of Ativan. His had no acute events overnight, his labs have been reviewed, white blood cell, 2.9, hemoglobin is 13.1, electrolytes were unremarkable, B1 is for creatinine 0.56 On 08/05/2020 patient seen in follow-up on medical floor, doing well, has been stable since the transfer out of intensive care unit yesterday, he is on room air, pulse ox of 97%, denies any difficulty breathing, no fever or chills, hemodynamically has been stable, his been tolerating ambulation, no seizures, no tremors, CIWA scale is 3. No acute events overnight, today's labs have been reviewed and fairly unremarkable, white blood cell count is 2.9, hemoglobin is 13.1, sodium is 136, breast electrolytes were normal, B1 is for creatinine 0.56, no nausea or vomiting, has been tolerating oral diet. Discharge planning is in progress for possible discharge to [facility] Objective - Vital Signs Vital signs: Vital Signs Temp 98.0 F 08/05/20 12:47 Pulse 63 08/05/20 12:47 Resp 18 08/05/20 12:47 BP 137/86 08/05/20 12:47 Pulse Ox 97 08/05/20 12:47 Intake & Output 08/04/20 08/05/20 08/05/20 18:59 06:59 18:59 Intake Total 300 948 200 Output Total 2135 Balance -1835 948 200 Weight 102.3 kg Intake: IV 300 Dextrose 5%-0.45% NaCl 1, 300 000 ml @ 100 mls/hr IV . Q10H [facility] Rx#:[id number] Oral 948 200 Output: Urine 2135 Other: Voiding Method Indwelling Catheter Toilet # Voids 4 - Exam GENERAL EXAM: 40-year-old white male, normal, with pulse ox of 99%, awake and alert, oriented 3 comfortable in no apparent distress. HEAD: Normocephalic/atraumatic. EYES: Normal reaction of pupils, equal size. Conjunctiva pink, sclera white. NOSE: Clear with pink turbinates. THROAT: No erythema or exudates. NECK: No masses, no JVD, no thyroid enlargement, no adenopathy. CHEST: No chest wall deformity. Symmetrical expansion. LUNGS: Equal air entry with no crackles, wheeze, rhonchi or dullness. CVS: Regular rate and rhythm, normal S1 and S2, no gallops, no murmurs, no rubs ABDOMEN: Soft, nontender. No hepatosplenomegaly, normal bowel sounds, no guarding or rigidity. EXTREMITIES: No clubbing, no edema, no cyanosis, 2+ pulses and upper and lower extremities. MUSCULOSKELETAL: Muscle strength and tone normal. SPINE: No scoliosis or deformity SKIN: No rashes CENTRAL NERVOUS SYSTEM: Drowsy, arousable,. No focal deficits, tone is normal in all 4 extremities. - Labs CBC & Chem 7: 08/04/20 03:24 08/04/20 03:24 Assessment and Plan Plan: Assessment: #1. Acute alcohol withdrawal syndrome, improved, and patient CIWA scale is down to 3 today on 08/04/2020 #2. Acute alcohol withdrawal seizures, patient has had no recurrence of seizures #3. Alcohol intoxication #4. History of schizoaffective disorder Plan: Patient is doing well, CIWA will scale remains low, no seizures, no tremors, no altered mentation, vital signs have been stable. Tolerating ambulation, tolerating oral diet, anticipate discharge to [facility] today. Pulmonary/critical care service will sign off and follow on as-needed basis. I performed a history & physical examination of the patient and discussed their management with my nurse practitioner, Tanja Silverio. I reviewed the nurse practitioner's note and agree with the documented findings and plan of care. Lung sounds are positive for clear breath sounds . The findings and the impression was discussed with the patient. I attest to the documentation by the nurse practitioner. Time with Patient: Less than 30
--- NOTE | 2020-08-05 14:03 | P.PN ---
Progress Note - Text Progress Note Date: 08/05/20 Interval history: Patient was seen today for psychiatric follow-up regarding patient's depression and alcohol use/withdrawal. Patient appears to be more awake today and more coherent in his speech. He was sitting at the bedside eating his lunch and watching TV calmly. He claims that he has been taking his medications as prescribed and states that overall he is doing better. He claims that he is still not able to sleep fairly last night and was requesting to have his Zyprexa increased. He claims that he is still dealing with depression and asked more about his antidepressant medication. She was willing to have his Prozac increased today. He states that his mother has been upset at him and really wants him to go to rehab which he states that he wants to do as well. He claims that he is somewhat anxious about going to rehab and has an intake date at [place] on Monday. He is not endorsing any tremors or withdrawal symptoms at this time. He states that his appetite as been gradually improving and claims that his anxiety is improved since yesterday. At this time patient denies any suicidal or homicidal ideations intent or plan. Denies any Auditory or visual hallucinations. Patient denies any side effects from the medications and has been compliant with meds. Mental status exam: General Appearance: Patient appears to be well built, stated age is alert, directable, and attempts to be cooperative. more awake today. Behavior: No agitated behavior. Patient is calm and directable. No tremors today. Speech: Patient's speech is fluent and nonpressured. Less hesitant. Mood/Affect: Mood is improving mildly, affect is congruent and constricted. Suicidality/Homicidality: Patient denies having any suicidal or homicidal ideation intent or plan. Perceptions: Patient denies any auditory or visual hallucinations. Though content/process: There is no evidence of any delusional thought content and thought process is linear and goal-directed. Not endorsing any paranoia. Memory and concentration: AOX3, concentration improving. Judgment and insight: Poor, improving mildly Assessment: Depressive disorder unspecified rule out secondary to substance use Alcohol use disorder, severe, currently in withdrawal Anxiety disorder unspecified Plan: -At this time patient DOES meet criteria for inpatient psychiatric admission. -Would recommend the following medication changes/additions: Increased Zyprexa 7.5 mg daily at bedtime for mood/withdrawal symptoms/insomnia, continue melatonin 5mg daily at bedtime for sleep. Increased Prozac 40 mg daily for mood/anxiety. buspar 10mg bid prn for anxiety. -Phenobarbital scheduled is currently being tapered for alcohol withdrawal, managed by primary team. Tomorrow is patient's last day of phenobarbital. -CIWA protocol with PRN Ativan for alcohol withdrawal. Continue to monitor vital signs. -foundry worker general to provide patient with outpatient mental health/psychiatry resources for appropriate follow up upon discharge -Property Insurance Agent spoke with patient about substance abuse and the harmful effects on medical and mental health, patient verbally understood and agreed. -foundry worker general to provide patient substance use treatment resources including AA/NA meetings in the community. -Patient apparently has an intake date at [place] [facility] on Monday for substance use rehab. -Communicated plan to patient's nurse -At this time psychiatry will sign off. -Please contact with any questions.
[2020-08-05] MEDS: busPIRone HCl 10 MG TAB PO PRN (19:15)
[2020-08-05] MEDS: MELATONIN 5 MG TABLET PO SCH (19:54)
[2020-08-05] MEDS ORDERED: OLANZapine 7.5 MG TAB PO SCH (21:00)
[2020-08-06] MEDS: ENOXAPARIN 40 MG/0.4 ML SYRINGE SQ SCH (08:19)
[2020-08-06] MEDS: THIAMINE 100 MG TAB PO SCH (08:20)
[2020-08-06] MEDS: FOLIC ACID 1 MG TAB PO SCH (08:20)
[2020-08-06] MEDS: MULTIVITAMINS, THERA 1 EACH TAB PO SCH (08:20)
[2020-08-06] MEDS: busPIRone HCl 10 MG TAB PO PRN (08:34)
[2020-08-06] MEDS ORDERED: FLUoxetine HCL 20 MG CAP PO SCH (09:00)
--- NOTE | 2020-08-06 09:57 | P.DS ---
Providers Date of admission: 07/29/20 15:18 Expected date of discharge: 08/06/20 Attending physician: Sara Ly Consults: 07/30/20 10:24 Consult Physician Stat Consulting Provider: Violet Adams Consult Reason/Comments: icu managment Do you want consulting provider notified?: Yes 07/30/20 14:17 Consult Physician Routine Consulting Provider: Robbie Nj Consult Reason/Comments: New-onset seizure Do you want consulting provider notified?: Yes 08/01/20 09:26 Consult Physician Urgent Consulting Provider: Luciano Blackwood Consult Reason/Comments: schizoeffective disorder; psychosis Do you want consulting provider notified?: Yes Primary care physician: Physician Nonstaff Hospital Course: Discharge Diagnosis: Alcohol withdrawal with seizure Transaminitis likely secondary to alcohol use Anxiety disorder, possible schizophrenia Pancytopenia likely related to liver disease Fatty infiltration of the liver Hospital Course: Patient is a 40 yo M wtih a know hx of alcoholism and schizoaffective disorder who presented due to new onset seizure at home while detoxing from alcohol. CT head and cervical spine showed small focal left frontoparietal acute scalp hematoma. CT cervical and thorasic spice showed no acute process, but diffuse fatty infiltration of the liver. Laboratory analysis showed lactic acidosis, thrombocytopenia, and elevated AST/ALT. Despite being in withdrawal alcohol level was 349. Patient was admitted and initially started on librium and CIWA with ativan use. His withdrawal worsened requiring precedex gtt and transition from librium to phenobarb. Neurology was consulted and felt the seizure was consistent with alcohol withdrawal and no need for antieleptic medications or EEG. He was sated on haldol on 08/01 which seemed to help with agitation. Psychiatry was consulted and recommended medication changes. Precedex was stopped on 08/02. He continued to improved and was no longer requiring ativan phenobarb giuliano was completed. Mental health medications were optimized and psychiatry recommended rehab. Patient was given the option of [facility] admission on 08/06 at 9:45 am but decline and it was rescheduled for 08/10. He was determined stable for discharge. Patient seen and examined at bedside. Vital signs reviewed and stable. General: non toxic, no distress, appears at stated age Derm: warm, dry Head: normocephalic, scar right maxillary area Eyes: EOMI, no lid lag, anicteric sclera Mouth: no lip lesion, mucus membranes moist Cardiovascular: S1S2 reg, no murmur, positive posterior tibial pulse bilateral, Lungs: CTA bilateral, no rhonchi, no rales , no accessory muscle use Abdominal: soft, nontender to palpation, no guarding, no appreciable organomegaly Ext: no gross muscle atrophy, no edema, no contractures Neuro: CN II-XI grossly intact, no focal neuro deficits Psych: Alert, oriented, appropriate affect, frequnet blinking A total of 35 minutes of time were spent preparing this complex discharge summary . Patient Condition at Discharge: Stable Plan - Discharge Summary New Discharge Prescriptions: New busPIRone HCl [Buspar] 10 mg PO BID PRN #30 tab PRN Reason: Anxiety Folic Acid 1 mg PO DAILY #15 tab FLUoxetine HCL [PROzac] 40 mg PO DAILY #30 cap Thiamine [Vitamin B-1] 100 mg PO BID-W/MEALS #30 tab OLANZapine [ZyPREXA] 7.5 mg PO HS #30 tab Continue Multivitamins, Thera [Multivitamin (formulary)] 1 tab PO DAILY Biotin 5 mg PO DAILY Discontinued Gabapentin [Neurontin] 300 mg PO DIRECTED Sertraline [Zoloft] 25 mg PO DAILY hydrOXYzine HCL [Atarax] 25 mg PO QID PRN PRN Reason: Anxiety Discharge Medication List Biotin 5 mg PO DAILY 07/29/20 [History] Multivitamins, Thera [Multivitamin (formulary)] 1 tab PO DAILY 07/29/20 [History] FLUoxetine HCL [PROzac] 40 mg PO DAILY #30 cap 08/06/20 [Rx] Folic Acid 1 mg PO DAILY #15 tab 08/06/20 [Rx] OLANZapine [ZyPREXA] 7.5 mg PO HS #30 tab 08/06/20 [Rx] Thiamine [Vitamin B-1] 100 mg PO BID-W/MEALS #30 tab 08/06/20 [Rx] busPIRone HCl [Buspar] 10 mg PO BID PRN #30 tab 08/06/20 [Rx] Follow up Appointment(s)/Referral(s): None,Stated [REFERRING] - 1-2 days Activity/Diet/Wound Care/Special Instructions: Activity: as tolerated Diet: regular Special Instructions: [facility] [phone] Follow-up with Dr Tahir Bernard and can be reached at [phone] for 6 [address] as per [place] state law, climb ladders, operate dangerous machinery or unsupervised swimming. Consider Naltrexone to decrease risk of relapse Discharge Disposition: HOME SELF-CARE
[2020-08-06 13:20] VITALS: BP 147/93; PULSE 71; RESP 18; TEMP 97.6
== END 2020-08-06 14:45 | disposition home or self-care (01) | DRG 897 ==
LOC: EC 12:23 → 5NMEDONC 15:18 → 2SICU 07-30 04:16 → 5NMEDONC 08-04 21:39
PROVIDERS: ADMIT Internal Medicine; ATTEND Internal Medicine
DX: F10.231 Alcohol dependence with withdrawal delirium (principal); E87.2 Acidosis; D61.818 Other pancytopenia; F25.9 Schizoaffective disorder, unspecified; F10.229 Alcohol dependence with intoxication, unspecified; G40.409 Other generalized epilepsy and epileptic syndromes, not intractable, without status epilepticus; F41.9 Anxiety disorder, unspecified; Z20.822 Contact with and (suspected) exposure to COVID-19; K76.0 Fatty (change of) liver, not elsewhere classified; I44.4 Left anterior fascicular block; Y90.8 Blood alcohol level of 240 mg/100 ml or more; S00.03XA Contusion of scalp, initial encounter; F32.9 Major depressive disorder, single episode, unspecified; Z79.899 Other long term (current) drug therapy; Z56.0 Unemployment, unspecified; Z71.41 Alcohol abuse counseling and surveillance of alcoholic
CPT/HCPCS: 36415; 70450; 72125; 72126; 72129; 80048; 80053; 80306; 80320; 81003; 83605; 83735; 84132; 85025; 85027; 85610; 87635; 93005; 96374; 96376; 99285

== ENCOUNTER 2020-08-18 20:58 | Inpatient (IN) | payer OTHER ==
[2020-08-18] MEDS ORDERED: SODIUM CHLORIDE 0.9% 1,000 ML IV STA ×2 (22:31)
[2020-08-18] MEDS ORDERED: LORazepam 2 MG/ML INJ IV STA (22:31)
[2020-08-18] MEDS ORDERED: THIAMINE 100 MG/ML 2 ML VIAL IM STA (22:31)
[2020-08-18] MEDS ORDERED: LORazepam 2 MG/ML INJ IV PRN (22:31)
[2020-08-18] MEDS ORDERED: SODIUM CHLORIDE 0.9% 500 ML 500 ML IV STA (22:31)
--- NOTE | 2020-08-18 22:53 | ED ---
Alcohol HPI - General Chief Complaint: Alcohol Stated Complaint: Alc detox Time Seen by Provider: 08/18/20 22:37 Source: patient, RN notes reviewed, old records reviewed Mode of arrival: ambulatory Limitations: no limitations - History of Present Illness Initial Comments: This is a 40-year-old male DF for evaluation patient presents with mother as a poor historian. Patient. Alcohol abuse admission 1 month ago for similar alcoholism issues. Patient has otherwise no travel show sick contacts no fevers cough congestion or chest pain. No headache. 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 -: hour(s) Previous Visits for Alcohol Intoxication?: Yes Recent Trauma: No Associated Symptoms: nausea, diaphoresis, tremors Treatments Prior to Arrival: none Chronic Alcohol Use: Yes - Related Data Home Medications Medication Instructions Recorded Confirmed Biotin 5 mg PO DAILY 07/29/20 08/18/20 Multivitamins, Thera [Multivitamin 1 tab PO DAILY 07/29/20 08/18/20 (formulary)] Previous Rx's Medication Instructions Recorded FLUoxetine HCL [PROzac] 40 mg PO DAILY #30 cap 08/06/20 Folic Acid 1 mg PO DAILY #15 tab 08/06/20 OLANZapine [ZyPREXA] 7.5 mg PO HS #30 tab 08/06/20 Thiamine [Vitamin B-1] 100 mg PO BID-W/MEALS #30 tab 08/06/20 amLODIPine [Norvasc] 5 mg PO DAILY #30 tab 08/06/20 busPIRone HCl [Buspar] 10 mg PO BID PRN #30 tab 08/06/20 Allergies Allergy/AdvReac Type Severity Reaction Status Date / Time No Known Allergies Allergy Verified 08/18/20 23:37 Review of Systems ROS Statement: Those systems with pertinent positive or pertinent negative responses have been documented in the HPI. ROS Other: All systems not noted in ROS Statement are negative. Past Medical History Past Medical History: Hypertension History of Any Multi-Drug Resistant Organisms: None Reported Additional Past Surgical History / Comment(s): facial surgery Past Psychological History: Depression Smoking Status: Never smoker Past Alcohol Use History: Abuse, Daily Past Drug Use History: None Reported General Exam Limitations: no limitations General appearance: appears intoxicated, anxious, in distress Head exam: Present: atraumatic, normocephalic, normal inspection Eye exam: Present: normal appearance, PERRL, EOMI. Absent: scleral icterus, conjunctival injection, periorbital swelling ENT exam: Present: normal exam, mucous membranes moist Neck exam: Present: normal inspection. Absent: tenderness, meningismus, lymphadenopathy Respiratory exam: Present: normal lung sounds bilaterally. Absent: respiratory distress, wheezes, rales, rhonchi, stridor Cardiovascular Exam: Present: normal rhythm, tachycardia, normal heart sounds. Absent: systolic murmur, diastolic murmur, rubs, gallop, clicks GI/Abdominal exam: Present: soft, normal bowel sounds. Absent: distended, t enderness, guarding, rebound, rigid Extremities exam: Present: normal inspection, full ROM, normal capillary refill. Absent: tenderness, pedal edema, joint swelling, calf tenderness Back exam: Present: normal inspection Neurological exam: Present: alert, oriented X3, CN II-XII intact Psychiatric exam: Present: normal affect, normal mood Skin exam: Present: warm, dry, intact, normal color. Absent: rash Course Vital Signs 08/18/20 08/19/20 21:30 00:00 Temperature 98.6 F Pulse Rate 112 H 69 Respiratory 20 18 Rate Blood Pressure 143/73 151/90 O2 Sat by Pulse 97 97 Oximetry - Reevaluation(s) Reevaluation #1: 08/18/20 23:40 Medical record is reviewed Reevaluation #2: 08/19/20 00:36 Patient has no significant improvement here in the ER still remains moderately altered mental status Medical Decision Making - Medical Decision Making 40 male to the ER admitted for alcohol severe intoxication with pending withdrawals and seizures - Lab Data Result diagrams: 08/18/20 23:03 Lab Results 08/18/20 Range/Units 23:03 Sodium 138 (137-145) mmol/L Potassium 4.2 (3.5-5.1) mmol/L Chloride 102 (98-107) mmol/L Carbon Dioxide 25 (22-30) mmol/L Anion Gap 11 mmol/L BUN 11 (9-20) mg/dL Creatinine 0.67 (0.66-1.25) mg/dL Est GFR (CKD-EPI)AfAm >90 (>60 ml/min/1.73 sqM) Est GFR (CKD-EPI)NonAf >90 (>60 ml/min/1.73 sqM) Glucose 93 (74-99) mg/dL Calcium 8.6 (8.4-10.2) mg/dL Phosphorus 3.7 (2.5-4.5) mg/dL Magnesium 2.1 (1.6-2.3) mg/dL Total Bilirubin 0.5 (0.2-1.3) mg/dL AST 120 H (17-59) U/L ALT 64 H (4-49) U/L Alkaline Phosphatase 111 (38-126) U/L Total Protein 7.0 (6.3-8.2) g/dL Albumin 4.5 (3.5-5.0) g/dL Lipase 307 H (23-300) U/L Serum Alcohol 266 H* mg/dL Disposition Clinical Impression: Alcohol abuse, Alcohol withdrawal Disposition: ADMITTED IP TO THIS HOSP Condition: Fair Is patient prescribed a controlled substance at d/c from ED?: No Referrals: None,Stated [Primary Care Provider] - 1-2 days
[2020-08-18 23:51] LABS: ALT 64 U/L (4-49); AST 120 U/L (17-59); African American GFR (CKD) >90 (>60 ml/min/1.73 sqM); Albumin 4.5 g/dL (3.5-5.0); Alkaline Phosphatase 111 U/L (38-126); Anion Gap 11 mmol/L; Blood Urea Nitrogen 11 mg/dL (9-20); Calcium 8.6 mg/dL (8.4-10.2); Carbon Dioxide 25 mmol/L (22-30); Chloride 102 mmol/L (98-107); Glucose 93 mg/dL (74-99); Lipase 307 U/L (23-300); Magnesium 2.1 mg/dL (1.6-2.3); Non-African American GFR(CKD) >90 (>60 ml/min/1.73 sqM); Phosphorus 3.7 mg/dL (2.5-4.5); Potassium 4.2 mmol/L (3.5-5.1); Sodium 138 mmol/L (137-145); Total Bilirubin 0.5 mg/dL (0.2-1.3)
[2020-08-19] MEDS: LORazepam 2 MG/ML INJ IV PRN ×13 (00:25→21:54)
[2020-08-19 00:32] LABS: Alcohol 266 mg/dL
[2020-08-19] MEDS ORDERED: NALOXONE 0.4 MG/ML 1 ML VIAL IV PRN (00:34)
[2020-08-19] MEDS ORDERED: ONDANSETRON 4 MG/2 ML VIAL IVP PRN (00:34)
[2020-08-19 01:40] LABS: Basophils % (A) 1 %; Eosinophils % (A) 0 %; HCT 45.2 % (39.0-53.0); HGB 14.8 gm/dL (13.0-17.5); Lymphocytes # (A) 1.4 k/uL (1.0-4.8); Lymphocytes % (A) 33 %; MCHC 32.7 g/dL (31.0-37.0); Mean Platelet Volume 7.7; Monocytes # (A) 0.2 k/uL (0-1.0); Monocytes % (A) 5 %; Neutrophils # (A) 2.5 k/uL (1.3-7.7); Neutrophils % (A) 60 %; RBC 4.47 m/uL (4.30-5.90); RDW 13.3 % (11.5-15.5); WBC 4.2 k/uL (3.8-10.6)
[2020-08-19 01:42] LABS: Amphetamine Screen,Urine Not Detected (NotDetected); Barbiturate Screen,Urine Not Detected (NotDetected); Benzodiazepines Screen,Urine Not Detected (NotDetected); Cocaine Screen,Urine Not Detected (NotDetected); Methadone Screen, Urine Not Detected (NotDetected); Opiate Screen,Urine Not Detected (NotDetected); Oxycodone Screen, Urine Not Detected (NotDetected); Phencyclidine Screen,Urine Not Detected (NotDetected); Tricyclic Antidepressant,Urine Not Detected (NotDetected); Urn Cannabinoid Scrn Not Detected (NotDetected)
[2020-08-19 01:42] LABS: Platelet Count 240 k/uL (150-450)
[2020-08-19] MEDS: DEXTROSE 5%-0.45% NACL 1,000 ML IV SCH ×3 (02:22→22:05)
[2020-08-19] MEDS: amLODIPine 5 MG TAB PO SCH (08:44)
[2020-08-19] MEDS: FOLIC ACID 1 MG TAB PO SCH (08:44)
[2020-08-19] MEDS: FLUoxetine HCL 20 MG CAP PO SCH (08:44)
[2020-08-19] MEDS: FAMOTIDINE 20 MG/2 ML VIAL IV SCH ×2 (08:44→22:05)
[2020-08-19] MEDS: busPIRone HCl 10 MG TAB PO PRN ×2 (08:44→17:47)
[2020-08-19] MEDS: PANTOPRAZOLE 40 MG/10 ML VIAL IV SCH (08:45)
[2020-08-19] MEDS: OLANZapine 7.5 MG TAB PO SCH ×2 (08:45→22:14)
[2020-08-19] MEDS: MULTIVITAMINS, THERA 1 EACH TAB PO SCH (08:45)
[2020-08-19] MEDS: HEPARIN SODIUM,PORCINE 5,000 UNIT/ML 1 ML VIAL SQ SCH ×2 (08:45→22:05)
--- NOTE | 2020-08-19 09:04 | P.HPIM ---
History of Present Illness This is a pleasant 40 years old male with past medical history of alcohol abuse, alcohol withdrawal seizure, depression Patient presents asking for help for alcohol detox, his last drink was yesterday at 2 PM. He presents with Symptoms of Withdrawal Locked Shakiness, Anxiety, Lightheadedness and Tremor. Patient Does Not Feeling Well Generally. He Denies Chest Pain or Dyspnea or Abdominal Pain. No Nausea Vomiting or Diarrhea. No Fever He drinks about 1/5 and a half of 40 every day without one beer. He denies smoking or illicit drugs He feels depressed but denies suicidal or homicidal ideation Patient where he has history of withdrawal seizure, is not sure if he is on any seizure medication but he says he is on BuSpar and Zyprexa for depression. Patient was reminded that he should not drive for 6 month because of his recent history of seizure earlier this month. He verbalized understanding and acceptance Patient is slightly tachycardic at 110. And he is afebrile. Labs show an unremarkable CBC, BMP, liver enzymes slightly elevated with AST 120 and ALT 64, bilirubin is normal 0.5. Lipase is slightly up at 307. Urine drug screen is negative. Serum alcohol level is 2066 and coronary bars not detected. Emergency room patient was started on CIWA protocol, thiamine and normal saline Review of Systems CONSTITUTIONAL: No fever, no malaise, no fatigue. HEENT: No recent visual problems or hearing problems. Denied any sore throat. CARDIOVASCULAR: No orthopnea, PND, no palpitations, no syncope. PULMONARY: No shortness of breath, no cough, no hemoptysis. GASTROINTESTINAL: No diarrhea, no nausea, no vomiting, no abdominal pain. Normoactive bowel sounds. NEUROLOGICAL: No headaches, no weakness, no numbness. HEMATOLOGICAL: Denies any bleeding or petechiae. GENITOURINARY: Denies any burning micturition, frequency, or urgency. MUSCULOSKELETAL/RHEUMATOLOGICAL: Denies any joint pain, swelling, or any muscle pain. ENDOCRINE: Denies any polyuria or polydipsia. Past Medical History Past Medical History: Hypertension History of Any Multi-Drug Resistant Organisms: None Reported Additional Past Surgical History / Comment(s): facial surgery Past Psychological History: Depression Smoking Status: Never smoker Past Alcohol Use History: Abuse, Daily Past Drug Use History: None Reported Medications and Allergies Home Medications Medication Instructions Recorded Confirmed Type Biotin 5 mg PO DAILY 07/29/20 08/18/20 History Multivitamins, Thera [Multivitamin 1 tab PO DAILY 07/29/20 08/18/20 History (formulary)] FLUoxetine HCL [PROzac] 40 mg PO DAILY #30 cap 08/06/20 08/18/20 Rx Folic Acid 1 mg PO DAILY #15 tab 08/06/20 08/18/20 Rx OLANZapine [ZyPREXA] 7.5 mg PO HS #30 tab 08/06/20 08/18/20 Rx Thiamine [Vitamin B-1] 100 mg PO BID-W/MEALS #30 tab 08/06/20 08/18/20 Rx amLODIPine [Norvasc] 5 mg PO DAILY #30 tab 08/06/20 08/18/20 Rx busPIRone HCl [Buspar] 10 mg PO BID PRN #30 tab 08/06/20 08/18/20 Rx Allergies Allergy/AdvReac Type Severity Reaction Status Date / Time No Known Allergies Allergy Verified 08/18/20 23:37 Physical Exam Vitals: Vital Signs Temp Pulse Resp BP Pulse Ox 08/19/20 02:22 98.6 F 110 H 18 124/49 96 08/19/20 01:00 84 18 08/19/20 00:00 69 18 151/90 97 08/18/20 21:30 98.6 F 112 H 20 143/73 97 Intake and Output 08/18/20 08/19/20 08/19/20 22:59 06:59 14:59 Other: Weight 102.058 kg GENERAL: The patient is alert and oriented x3, not in any acute distress. Well developed, well nourished. HEENT: Pupils are round and equally reacting to light. EOMI. No scleral icterus. No conjunctival pallor. Normocephalic, atraumatic. No pharyngeal erythema. No thyromegaly. CARDIOVASCULAR: S1 and S2 present. No murmurs, rubs, or gallops. PULMONARY: Chest is clear to auscultation, no wheezing or crackles. ABDOMEN: Soft, nontender, nondistended, normoactive bowel sounds. No palpable organomegaly. MUSCULOSKELETAL: No joint swelling or deformity. EXTREMITIES: No cyanosis, clubbing, or pedal edema. NEUROLOGICAL: Gross neurological examination did not reveal any focal deficits. SKIN: No rashes. No petechiae Results CBC & Chem 7: 08/19/20 00:13 08/18/20 23:03 Labs: Abnormal Lab Results - Last 24 Hours (Table) 08/18/20 08/19/20 Range/Units 23:03 00:13 MCV 101.0 H (80.0-100.0) fL AST 120 H (17-59) U/L ALT 64 H (4-49) U/L Lipase 307 H (23-300) U/L Serum Alcohol 266 H* mg/dL Assessment and Plan Assessment: Alcohol intoxication at Risk of alcohol withdrawal Depression without suicidal ideation Recent History of alcohol withdrawal seizure Plan: This is a pleasant 38 years old male who presents with alcohol withdrawal. Continue with CIWA protocol, thiamine, psych consult Labs and medication were reviewed.. Continue same treatment. Continue with symptomatic treatment. Resume home medication. Monitor lytes and vitals. DVT and GI prophylaxis. Further recommendations depends on the clinical course of the patient DVT prophylaxis: Subcutaneous heparin GI Prophylaxis: Pepcid Prognosis is guarded
--- NOTE | 2020-08-19 13:39 | P.CN ---
Psychiatric Consult - . Consult date: 08/19/20 Consult:: 08/19/20 12:42 IDENTIFYING DATA: This patient is a 40-year-old male who is currently living with his mother in a house and a single has no kids and is unemployed. REASON FOR REFERRAL: Psychiatry was consulted for "depression and alcohol use" HISTORY OF PRESENT ILLNESS: The patient presented to the hospital yesterday brought in by his mother for alcohol intoxication and withdrawal. Patient at that time was a poor historian regarding the ER report. He apparently was having nausea tremors and was diaphoretic. Patient was showing no improvement in the ER and continued to be altered. Patient's AST/ALT were elevated and blood alcohol level was 266 on admission. She claimed that his last drink was 1 day prior to coming in the hospital. Patient was admitted to medicine for alcohol withdrawal. Patient was seen today at the bedside and appeared to be trembling vigorously and was attempting to cooperate with engineering technical writer. He claims that he relapsed on alcohol after leaving the hospital previously. He states that he was drinking approximately a fifth and a half of vodka a day. He states that he has been doing this for several days now. He claims that he has been having poor sleep poor appetite. He was slow to respond to questions and appeared to have his eyes closed during most the conversation. He claims that he did not want to go to rehab last time because he was feeling "too nervous" however now states that he "wants to try and quit". At this time patient denies any suicidal or homical ideations, intent or plan. Patient denies any auditory, visual hallucinations and denies any paranoia or delusions. Patients admits to using alcohol as described above. PAST PSYCHIATRIC HISTORY: Patient has a history of depression and anxiety. Patient was previously on Prozac and Zyprexa since his last hospitalization ear lier this month. Patient denies any previous psychiatric hospitalizations. Patient denies any psychiatric outpatient follow-up. Patient denies any history of suicide attempts in the past. PAST MEDICAL HISTORY: denies. ALLERGIES: as per EMR. CHEMICAL DEPENDENCY HISTORY: Patient admits to drinking alcohol since the age of [age] years old. Drinking approximately 1-1/2 pints of vodka a day. He claims that he has been drinking "on and off since that time. He denies any other recreational drug use. He claims that he has been to rehab once to [place] in the past many years ago. FAMILY PSYCHIATRIC/SUBSTANCE USE HISTORY: denies SOCIAL HISTORY: Patient was born and raised in [place] and moved to [place] for several years and recently has moved back in with his mother. He currently lives with his mother in a house and is single has no kids and is unemployed. 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 He claims that he went to the [employer] in an undecided major. He did not finish his college degree. He denies any DUIs in the past or any legal history of snf or imprisonment. MENTAL STATUS EXAM: General Appearance: Patient appears to be well built, diaphoretic, stated age is alert, attempts to be cooperative. Appears to be in distress and trembling Behavior: No agitated behavior. Patient is calm and directable. Significant tremors. Speech: Patient's speech is nonpressured. Slow to respond Mood/Affect: Mood is "depressed", affect is congruent and constricted. Suicidality/Homicidality: Patient denies having any suicidal or homicidal ideation intent or plan. Perceptions: Patient denies any auditory or visual hallucinations. Though content/process: There is no evidence of any delusional thought content and thought process is linear and goal-directed. Not endorsing any paranoia. [place]. Memory and concentration: AOX3, concentration fair. Cannot spell "world" backwards. Judgment and insight: Poor IMPRESSIONS: Depressive disorder unspecified Alcohol use disorder, severe, currently in withdrawal Anxiety disorder unspecified PLAN: -At this time patient DOES NOT meet criteria for inpatient psychiatric admission. -Would recommend the following medication changes/additions: Continue Zyprexa 7.5 mg daily at bedtime for mood/withdrawal symptoms/insomnia. Continue with Prozac 40 mg daily for mood/anxiety. buspar 10 mg twice a day when necessary for anxiety. Added Librium 50 mg 3 times a day for alcohol withdrawal. -CIWA protocol with PRN Ativan for alcohol withdrawal. Continue to monitor vital signs. -thaimine and folic acid -general warehouse worker to provide patient with outpatient mental health/psychiatry resources for appropriate follow up upon discharge -Carburizing Furnace Operator spoke with patient about substance abuse and the harmful effects on medical and mental health, patient verbally understood and agreed. -general warehouse worker to provide patient substance use treatment resources including AA/NA meetings in the community. -general warehouse worker to provide patient with access line number to call for inpatient substance rehab -Patient continues to be ambivalent about going to rehab at this time once again. Will continue to speak with regarding this. -Communicated plan to patient's nurse -Will continue to follow along -Please contact with any questions.
[2020-08-19] MEDS: chlordiazePOXIDE 25 MG CAP PO SCH ×3 (14:11→22:10)
[2020-08-19] MEDS: THIAMINE 100 MG TAB PO SCH (20:21)
[2020-08-20] MEDS: LORazepam 2 MG/ML INJ IV PRN ×10 (01:33→23:30)
[2020-08-20] MEDS: MULTIVITAMINS, THERA 1 EACH TAB PO SCH (07:55)
[2020-08-20] MEDS: FAMOTIDINE 20 MG/2 ML VIAL IV SCH ×2 (07:55→20:00)
[2020-08-20] MEDS: THIAMINE 100 MG TAB PO SCH ×2 (07:55→15:52)
[2020-08-20] MEDS: chlordiazePOXIDE 25 MG CAP PO SCH ×3 (07:55→20:44)
[2020-08-20] MEDS: FOLIC ACID 1 MG TAB PO SCH (07:55)
[2020-08-20] MEDS: PANTOPRAZOLE 40 MG/10 ML VIAL IV SCH (07:56)
[2020-08-20] MEDS: DEXTROSE 5%-0.45% NACL 1,000 ML IV SCH ×2 (07:56→15:52)
[2020-08-20] MEDS: FLUoxetine HCL 20 MG CAP PO SCH (08:40)
[2020-08-20] MEDS: amLODIPine 5 MG TAB PO SCH (08:40)
[2020-08-20] MEDS: HEPARIN SODIUM,PORCINE/PF 5,000 UNIT/0.5 ML SYRINGE SQ SCH ×2 (08:40→20:01)
[2020-08-20] MEDS ORDERED: Magnesium Replacement Protocol 1 EACH MISC MISCELLANE PRN (09:38)
[2020-08-20] MEDS ORDERED: Potassium Replacement Protocol 1 EACH MISC MISCELLANE PRN (09:38)
[2020-08-20 11:14] LABS: Basophils # (A) 0.04 X 10*3/uL (0.00-0.10); Basophils % (A) 1.4 %; Eosinophils # (A) 0.09 X 10*3/uL (0.04-0.35); Eosinophils % (A) 3.2 %; HCT 39.9 % (39.6-50.0); HGB 13.5 g/dL (13.0-17.0); Lymphocytes # (A) 0.84 X 10*3/uL (0.90-5.00); Lymphocytes % (A) 30.2 %; MCH 33.9 pg (27.0-32.0); MCHC 33.8 g/dL (32.0-37.0); MCV 100.3 fL (80.0-97.0); Mean Platelet Volume 11.5 fL (9.5-12.2); Monocytes # (A) 0.23 X 10*3/uL (0.20-1.00); Monocytes % (A) 8.3 %; Neutrophils # (A) 1.57 X 10*3/uL (1.80-7.70); Neutrophils % (A) 56.5 %; Platelet Count 160 X 10*3/uL (140-440); RBC 3.98 X 10*6/uL (4.40-5.60); WBC 2.78 X 10*3/uL (4.50-10.00)
[2020-08-20 12:02] LABS: African American GFR (CKD) 134.9 (60.0-200.0); Albumin 3.9 g/dL (3.80-4.90); Albumin/Globulin Ratio 2.29 (1.60-3.17); Anion Gap 13.9 mmol/L (4.00-12.00); BUN/Creat Ratio 15.71 Ratio (12.00-20.00); Calcium 8.7 mg/dL (8.7-10.3); Carbon Dioxide 22.1 mmol/L (21.6-31.8); Globulin 1.7 g/dL (1.6-3.3); Magnesium 2.2 mg/dL (1.5-2.4); Non-African American GFR(CKD) 116.4 (60.0-200.0); Potassium 3.7 mmol/L (3.5-5.5); Total Bilirubin 1.2 mg/dL (0.2-1.2); Total Protein 5.6 g/dL (6.2-8.2)
[2020-08-20] MEDS ORDERED: diazePAM 2 MG TAB PO STA (12:38)
--- NOTE | 2020-08-20 12:40 | P.PN ---
Subjective This is a pleasant 40 years old male with past medical history of alcohol abuse, alcohol withdrawal seizure, depression Patient presents asking for help for alcohol detox, his last drink was yesterday at 2 PM. He presents with Symptoms of Withdrawal Locked Shakiness, Anxiety, Lightheadedness and Tremor. Patient Does Not Feeling Well Generally. He Denies Chest Pain or Dyspnea or Abdominal Pain. No Nausea Vomiting or Diarrhea. No Fever He drinks about 1/5 and a half of 40 every day without one beer. He denies smoking or illicit drugs He feels depressed but denies suicidal or homicidal ideation Patient where he has history of withdrawal seizure, is not sure if he is on any seizure medication but he says he is on BuSpar and Zyprexa for depression. Patient was reminded that he should not drive for 6 month because of his recent history of seizure earlier this month. He verbalized understanding and acceptance Patient is slightly tachycardic at 110. And he is afebrile. Labs show an unremarkable CBC, BMP, liver enzymes slightly elevated with AST 120 and ALT 64, bilirubin is normal 0.5. Lipase is slightly up at 307. Urine drug screen is negative. Serum alcohol level is 2065 and coronary bars not detected. Emergency room patient was started on CIWA protocol, thiamine and normal saline 08/20/2020 Patient is sleepy and weak this morning. However he denies coughing or dyspnea or chest pain. No nausea vomiting or diarrhea or abdominal pain. No visual or auditory hallucination or delusions. However patient has generalized weakness . He ishemodynamically stable. CBC showing some miles of hemoglobin delusion on the top of some myelosuppression by alcohol affect. His WBCs 2.7K, hemoglobin within normal buttocks dropped to 13.5 and platelets within normal but it dropped to 160 okay. AST and ALT are trending down. BMP and liver enzymes are stable Psychiatrist evaluated the patient yesterday Patient remains on CIWA score of 8-9 this morning and he is treated with Ativan per protocol. Also he is on vitamins. Discontinue D5 half-normal saline Review of Systems CONSTITUTIONAL: No fever, no malaise, no fatigue. HEENT: No recent visual problems or hearing problems. Denied any sore throat. CARDIOVASCULAR: No orthopnea, PND, no palpitations, no syncope. PULMONARY: No shortness of breath, no cough, no hemoptysis. GASTROINTESTINAL: No diarrhea, no nausea, no vomiting, no abdominal pain. Normoactive bowel sounds. NEUROLOGICAL: No headaches, no weakness, no numbness. Active Medications Generic Name Dose Route Start Last Admin Trade Name Freq PRN Reason Stop Dose Admin Amlodipine Besylate 5 mg 08/19/20 09:00 08/20/20 08:40 Amlodipine 5 Mg Tab PO 5 mg DAILY RAMESH Administration Buspirone HCl 10 mg 08/19/20 07:46 08/19/20 17:47 Buspirone Hcl 10 Mg Tab PO 10 mg BID PRN Administration Anxiety Chlordiazepoxide HCl 50 mg 08/19/20 13:23 08/20/20 07:55 Chlordiazepoxide 25 Mg Cap PO 50 mg TID RAMEHS Administration Famotidine 20 mg 08/19/20 09:00 08/20/20 07:55 Famotidine 20 Mg/2 Ml Vial IV 20 mg Q12HR RAMESH Administration Fluoxetine HCl 40 mg 08/19/20 09:00 08/20/20 08:40 Fluoxetine Hcl 20 Mg Cap PO 40 mg DAILY RAMESH Administration Folic Acid 1 mg 08/19/20 09:00 08/20/20 07:55 Folic Acid 1 Mg Tab PO 1 mg DAILY RAMESH Administration Heparin Sodium (Porcine) 5,000 unit 08/20/20 09:00 08/20/20 08:40 Heparin Sodium,Porcine/Pf 5,000 Unit/0.5 Ml Syringe SQ 5,000 unit Q12HR RAMESH Administration Dextrose/Sodium Chloride 1,000 mls @ 100 mls/hr 08/19/20 00:45 08/20/20 07:56 Dextrose 5%-1/2ns Iv Soln IV 100 mls/hr .Q10H RAMESH Administration Lorazepam 1 mg 08/18/20 22:31 08/20/20 10:24 Lorazepam 2 Mg/Ml Inj IV 1 mg Q2HR PRN Administration CIWA 8 or 9 Lorazepam 1 mg 08/18/20 22:31 08/19/20 20:19 Lorazepam 2 Mg/Ml Inj IV 1 mg Q1HR PRN Administration CIWA 10 to 15 Lorazepam 2 mg 08/18/20 22:31 Lorazepam 2 Mg/Ml Inj IV 08/20/20 22:31 Q10M PRN CIWA 16 or higher Miscellaneous Information 1 each 08/20/20 09:38 Magnesium Replacement Protocol 1 Each Misc MISCELLANE DAILY PRN Per Protocol Protocol Miscellaneous Information 1 each 08/20/20 09:38 Potassium Replacement Protocol 1 Each [facility] MISCELLANE DAILY PRN Per Protocol Protocol Multivitamins 1 each 08/19/20 09:00 08/20/20 07:55 Multivitamins, Thera 1 Each Tab PO 1 each DAILY RAMESH Administration Naloxone HCl 0.2 mg 08/19/20 00:34 Naloxone 0.4 Mg/Ml 1 Ml Vial IV Q2M PRN Opioid Reversal Olanzapine 7.5 mg 08/19/20 21:00 08/19/20 22:14 Olanzapine 7.5 Mg Tab PO 7.5 mg HS RAMESH Administration Ondansetron HCl 4 mg 08/19/20 00:34 Ondansetron 4 Mg/2 Ml Vial IVP Q8HR PRN Nausea And Vomiting Pantoprazole Sodium 40 mg 08/19/20 09:00 08/20/20 07:56 Pantoprazole 40 Mg/10 Ml Vial IV 40 mg DAILY RAMESH Administration Thiamine HCl 100 mg 08/19/20 17:30 08/20/20 07:55 Thiamine 100 Mg Tab PO 100 mg BID-W/MEALS RAMESH Administration Objective - Vital Signs Vital signs: Vital Signs Temp 98.4 F 08/20/20 04:47 Pulse 78 08/20/20 04:47 Resp 16 08/20/20 04:47 BP 132/78 08/20/20 04:47 Pulse Ox 96 08/20/20 04:47 Intake & Output 08/19/20 08/20/20 08/20/20 18:59 06:59 18:59 Intake Total 1600 800 Balance 1600 800 Weight 102.058 kg Intake: IV 800 Dextrose 5%-0.45% NaCl 1, 800 000 ml @ 100 mls/hr IV . Q10H RAMESH Rx#:[id number] Oral 1600 - Exam -GENERAL: The patient is alert and oriented x3, drowsy, not in any acute dist ress. Well developed, well nourished. HEENT: Pupils are round and equally reacting to light. EOMI. No scleral icterus. No conjunctival pallor. Normocephalic, atraumatic. No pharyngeal erythema. No th yromegaly. CARDIOVASCULAR: S1 and S2 present. No murmurs, rubs, or gallops. PULMONARY: Chest is clear to auscultation, no wheezing or crackles. ABDOMEN: Soft, nontender, nondistended, normoactive bowel sounds. No palpable organomegaly. MUSCULOSKELETAL: No joint swelling or deformity. EXTREMITIES: No cyanosis, clubbing, or pedal edema. NEUROLOGICAL: Gross neurological examination did not reveal any focal deficits. SKIN: No rashes. No petechiae - Labs CBC & Chem 7: 08/20/20 06:30 08/20/20 06:30 Labs: Abnormal Lab Results - Last 24 Hours (Table) 08/20/20 08/20/20 Range/Units 06:30 06:30 WBC 2.78 L (4.50-10.00) X 10*3/uL RBC 3.98 L (4.40-5.60) X 10*6/uL MCV 100.3 H (80.0-97.0) fL MCH 33.9 H (27.0-32.0) pg Neutrophils # 1.57 L (1.80-7.70) X 10*3/uL Lymphocytes # 0.84 L (0.90-5.00) X 10*3/uL Anion Gap 13.90 H (4.00-12.00) mmol/L AST 83 H (14-35) U/L ALT 62 H (10-49) U/L Total Protein 5.6 L (6.2-8.2) g/dL Assessment and Plan Assessment: Alcohol intoxication at Risk of alcohol withdrawal Depression without suicidal ideation Recent History of alcohol withdrawal seizure Plan: This is a pleasant 38 years old male who presents with alcohol withdrawal. Continue with CIWA protocol, thiamine, psych consult Labs and medication were reviewed.. Continue same treatment. Continue with symptomatic treatment. Resume home medication. Monitor lytes and vitals. DVT and GI prophylaxis. Further recommendations depends on the clinical course of the patient DVT prophylaxis: Subcutaneous heparin GI Prophylaxis: Pepcid Prognosis is guarded
--- NOTE | 2020-08-20 14:17 | P.PN ---
Progress Note - Text Progress Note Date: 08/20/20 Interval History: Patient was seen today for psychiatric follow-up regarding patient's depression and alcohol use/withdrawal. Patient today appeared to be less tremulous and more awake during conversation. He is continuing to receive Ativan as per the ciwa protocol. Patients ciwa scores are improing significantly since yesterday. Patient continues to have poor insight into his drinking and continues to be in denial. He states that he is feeling "nervous" about possibly going to rehab an d claims that he still has not made up his mind. He states that his mother would like him to go to rehab. He claims that he is not sleeping well at night time and was asking to have his Zyprexa increased. He states that his mood is mildly better today however still feels depressed. He claims to have an improving appetite. At this time patient denies any suicidal or homical ideations, intent or plan. Patient denies any auditory, visual hallucinations and denies any paranoia or delusions. Patient denies any side effects from the medications and has been compliant with meds. Mental Status Exam: General Appearance: Patient appears to be well built, diaphoretic, stated age is alert, attempts to be cooperative. Appears to be less tremulous today. Behavior: No agitated behavior. Patient is calm and directable. Improving tremors. Speech: Patient's speech is nonpressured. Slow to respond Mood/Affect: Mood is "depressed", affect is congruent and constricted. Suicidality/Homicidality: Patient denies having any suicidal or homicidal ideation intent or plan. Perceptions: Patient denies any auditory or visual hallucinations. Though content/process: There is no evidence of any delusional thought content and thought process is linear and goal-directed. Not endorsing any paranoia. [place]. Memory and concentration: AOX3, concentration fair. Judgment and insight: Poor, improving mildly Assessment Depressive disorder unspecified Alcohol use disorder, severe, currently in withdrawal Anxiety disorder unspecified Plan: -At this time patient DOES NOT meet criteria for inpatient psychiatric admission. -Would recommend the following medication changes/additions: Increased Zyprexa 10 mg daily at bedtime for mood/withdrawal symptoms/insomnia. Continue with Prozac 40 mg daily for mood/anxiety. buspar 10 mg twice a day when necessary for anxiety. Continue with Librium 50 mg 3 times a day for alcohol withdrawal. -CIWA protocol with PRN Ativan for alcohol withdrawal. Continue to monitor vital signs. -thaimine and folic acid -harvest worker field crop to provide patient with outpatient mental health/psychiatry resources for appropriate follow up upon discharge -Plant Controller spoke with patient about substance abuse and the harmful effects on medical and mental health, patient verbally understood and agreed. -harvest worker field crop to provide patient substance use treatment resources including AA/NA meetings in the community. -harvest worker field crop to provide patient with access line number to call for inpatient substance rehab -Patient continues to be ambivalent about going to rehab at this time once again. Will continue to speak with regarding this. -Communicated plan to patient's nurse -Will continue to follow along -Please contact with any questions.
[2020-08-20] MEDS: OLANZapine 10 MG TAB PO SCH (20:00)
[2020-08-21] MEDS: LORazepam 2 MG/ML INJ IV PRN ×8 (02:17→17:28)
[2020-08-21] MEDS: DEXTROSE 5%-0.45% NACL 1,000 ML IV SCH ×3 (03:41→15:57)
[2020-08-21] MEDS: PANTOPRAZOLE 40 MG/10 ML VIAL IV SCH (07:36)
[2020-08-21] MEDS: FOLIC ACID 1 MG TAB PO SCH (07:40)
[2020-08-21] MEDS: chlordiazePOXIDE 25 MG CAP PO SCH ×3 (08:39→21:48)
[2020-08-21] MEDS: THIAMINE 100 MG TAB PO SCH ×2 (08:39→17:28)
[2020-08-21] MEDS: amLODIPine 5 MG TAB PO SCH (08:39)
[2020-08-21] MEDS: FLUoxetine HCL 20 MG CAP PO SCH (08:39)
[2020-08-21] MEDS: MULTIVITAMINS, THERA 1 EACH TAB PO SCH (08:40)
[2020-08-21] MEDS: FAMOTIDINE 20 MG/2 ML VIAL IV SCH ×2 (08:40→21:47)
[2020-08-21] MEDS: HEPARIN SODIUM,PORCINE/PF 5,000 UNIT/0.5 ML SYRINGE SQ SCH ×2 (08:40→21:48)
[2020-08-21] MEDS: busPIRone HCl 10 MG TAB PO PRN (10:06)
[2020-08-21] MEDS ORDERED: FLUoxetine HCL 20 MG CAP PO STA (10:55)
--- NOTE | 2020-08-21 10:59 | P.PN ---
Progress Note - Text Progress Note Date: 08/21/20 Interval History: Patient was seen today for psychiatric follow-up regarding patient's depression and alcohol use/withdrawal. Patient today appeared to be less tremulous today and more awake during conversation. He is continuing to receive Ativan as per the ciwa protocol and requested a dose today to marine underwriter. Patients ciwa scores are improving mildly. Patient continues to have poor insight into his drinking and need for treatment. He states that he has been thinking about going to rehab still and claims that his mother wants him to go but he states that he is still nervous and does not entirely believe that he needs it. He asked why other people are able to drink and not need rehab and why he does. He claims that he slept a bit better last night however was requesting more medications at nighttime. He was agreeable to try melatonin tonight for sleep. He states that his mood is mildly better today however still feels depressed and was agreeable to have his Prozac increased. He claims to have an improving appetite. At this time patient denies any suicidal or homical ideations, intent or plan. Patient denies any auditory, visual hallucinations and denies any paranoia or delusions. Patient denies any side effects from the medications and has been compliant with meds. Mental Status Exam: General Appearance: Patient appears to be well built, stated age is alert, attempts to be cooperative. Appears to be less tremulous today. Improved hygiene and grooming. Behavior: No agitated behavior. Patient is calm and directable. Improving tremors. Speech: Patient's speech is nonpressured. Mood/Affect: Mood is "depressed" however improving, affect is congruent Suicidality/Homicidality: Patient denies having any suicidal or homicidal ideation intent or plan. Perceptions: Patient denies any auditory or visual hallucinations. Though content/process: There is no evidence of any delusional thought content and thought process is linear and goal-directed. Not endorsing any paranoia. Cecilia. Memory and concentration: AOX3, concentration fair. Judgment and insight: Poor, improving mildly Assessment Depressive disorder unspecified Alcohol use disorder, severe, currently in withdrawal Anxiety disorder unspecified Plan: -At this time patient DOES NOT meet criteria for inpatient psychiatric admission. -Would recommend the following medication changes/additions: Continue with Zyprexa 10 mg daily at bedtime for mood/withdrawal symptoms/insomnia. Increased Prozac 60 mg daily for mood/anxiety. buspar 10 mg twice a day when necessary for anxiety. Continue with Librium 50 mg 3 times a day for alcohol withdrawal, this can be decreased/tapered down tomorrow. -CIWA protocol with PRN Ativan for alcohol withdrawal. Continue to monitor vital signs. -thaimine and folic acid -bottle line worker to provide patient with outpatient mental health/psychiatry resources for appropriate follow up upon discharge -Fire Watchman spoke with patient about substance abuse and the harmful effects on medical and mental health, patient verbally understood and agreed. -bottle line worker to provide patient substance use treatment resources including AA/NA meetings in the community. -bottle line worker to provide patient with access line number to call for inpatient substance rehab -Patient continues to be ambivalent about going to rehab at this time once again. Attempted several times to encourage patient to go to rehab however he continues to minimize his drinking and has poor insight into it. -Psychiatry will sign off at this time. -Please contact with any questions.
[2020-08-21] MEDS ORDERED: LORazepam 2 MG/ML INJ IV PRN (15:49)
[2020-08-21] MEDS ORDERED: MELATONIN 5 MG TABLET PO SCH (21:00)
[2020-08-21] MEDS: OLANZapine 10 MG TAB PO SCH (21:49)
[2020-08-22] MEDS: LORazepam 2 MG/ML INJ IV PRN ×2 (01:50→06:10)
--- NOTE | 2020-08-22 08:13 | P.PN ---
Subjective Progress Note Date: 08/21/20 Principal diagnosis: EtOH abuse/withdrawal 40 years old male with past medical history of alcohol abuse, alcohol withdrawal seizure, depression Patient presents asking for help for alcohol detox, his last drink was yesterday at 2 PM. He presents with Symptoms of Withdrawal Locked Shakiness, Anxiety, Lightheadedness and Tremor. Patient Does Not Feeling Well Generally. He Denies Chest Pain or Dyspnea or Abdominal Pain. No Nausea Vomiting or Diarrhea. No Fever He drinks about 1/5 and a half of 40 every day without one beer. He denies smoking or illicit drugs He feels depressed but denies suicidal or homicidal ideation Patient where he has history of withdrawal seizure, is not sure if he is on any seizure medication but he says he is on BuSpar and Zyprexa for depression. Patient was reminded that he should not drive for 6 month because of his recent history of seizure earlier this month. He verbalized understanding and acceptance Review of Systems CONSTITUTIONAL: No fever, no malaise, no fatigue. HEENT: No recent visual problems or hearing problems. Denied any sore throat. CARDIOVASCULAR: No orthopnea, PND, no palpitations, no syncope. PULMONARY: No shortness of breath, no cough, no hemoptysis. GASTROINTESTINAL: No diarrhea, no nausea, no vomiting, no abdominal pain. Normoactive bowel sounds. NEUROLOGICAL: No headaches, no weakness, no numbness. Objective - Vital Signs Vital signs: Vital Signs Temp 97.4 F L 08/21/20 04:39 Pulse 72 08/21/20 04:39 Resp 18 08/21/20 04:39 BP 140/90 08/21/20 06:28 Pulse Ox 98 08/21/20 04:39 Intake & Output 08/20/20 08/21/20 08/21/20 18:59 06:59 18:59 Intake Total 800 1000 480 Output Total 500 500 Balance 800 500 -20 Intake: IV 800 Dextrose 5%-0.45% NaCl 1, 800 000 ml @ 100 mls/hr IV . Q10H RAMESH Rx#:[id number] Oral 1000 480 Output: Urine 500 500 Other: Voiding Method Urinal # Voids 2 2 - Exam -GENERAL: The patient is alert and oriented x3, drowsy, not in any acute distress. Well developed, well nourished. HEENT: Pupils are round and equally reacting to light. EOMI. No scleral icterus. No conjunctival pallor. Normocephalic, atraumatic. No pharyngeal erythema. No thyromegaly. CARDIOVASCULAR: S1 and S2 present. No murmurs, rubs, or gallops. PULMONARY: Chest is clear to auscultation, no wheezing or crackles. ABDOMEN: Soft, nontender, nondistended, normoactive bowel sounds. No palpable organomegaly. MUSCULOSKELETAL: No joint swelling or deformity. EXTREMITIES: No cyanosis, clubbing, or pedal edema. NEUROLOGICAL: Gross neurological examination did not reveal any focal deficits. SKIN: No rashes. No petechiae - Labs CBC & Chem 7: 08/20/20 06:30 08/20/20 06:30 Labs: Abnormal Lab Results - Last 24 Hours (Table) 08/20/20 08/20/20 Range/Units 06:30 06:30 WBC 2.78 L (4.50-10.00) X 10*3/uL RBC 3.98 L (4.40-5.60) X 10*6/uL MCV 100.3 H (80.0-97.0) fL MCH 33.9 H (27.0-32.0) pg Neutrophils # 1.57 L (1.80-7.70) X 10*3/uL Lymphocytes # 0.84 L (0.90-5.00) X 10*3/uL Anion Gap 13.90 H (4.00-12.00) mmol/L AST 83 H (14-35) U/L ALT 62 H (10-49) U/L Total Protein 5.6 L (6.2-8.2) g/dL Assessment and Plan Assessment: Alcohol intoxication at Risk of alcohol withdrawal Depression without suicidal ideation Recent History of alcohol withdrawal seizure Plan: 38 years old male who presents with alcohol withdrawal. Continue with CIWA protocol, thiamine, psych consult Labs and medication were reviewed.. Continue same treatment. Continue with symptomatic treatment. Resume home medication. Monitor lytes and vitals. DVT and GI prophylaxis. Further recommendations depends on the clinical course of the patient DVT prophylaxis: Subcutaneous heparin GI Prophylaxis: Pepcid Prognosis is guarded
[2020-08-22] MEDS ORDERED: FLUoxetine HCL 20 MG CAP PO SCH (09:00)
[2020-08-22] MEDS: chlordiazePOXIDE 25 MG CAP PO SCH ×2 (09:35→15:35)
[2020-08-22] MEDS: PANTOPRAZOLE 40 MG/10 ML VIAL IV SCH (10:00)
[2020-08-22] MEDS: amLODIPine 5 MG TAB PO SCH (10:00)
[2020-08-22] MEDS: FOLIC ACID 1 MG TAB PO SCH (10:27)
[2020-08-22] MEDS: THIAMINE 100 MG TAB PO SCH (10:27)
[2020-08-22] MEDS: FAMOTIDINE 20 MG/2 ML VIAL IV SCH (10:28)
[2020-08-22] MEDS: MULTIVITAMINS, THERA 1 EACH TAB PO SCH (10:29)
[2020-08-22] MEDS: HEPARIN SODIUM,PORCINE/PF 5,000 UNIT/0.5 ML SYRINGE SQ SCH (10:29)
[2020-08-22 12:02] VITALS: BP 135/90; PULSE 85; RESP 17; TEMP 97.9
[2020-08-22] MEDS: DEXTROSE 5%-0.45% NACL 1,000 ML IV SCH (15:37)
--- NOTE | 2020-08-22 17:49 | P.DS ---
Providers Date of admission: 08/19/20 00:34 Expected date of discharge: 08/22/20 Attending physician: Humza Barrera Consults: 08/19/20 09:03 Consult Physician Routine Consulting Provider: Luciano Blackwood Consult Reason/Comments: depression , alcoholic Do you want consulting provider notified?: Yes Primary care physician: Stated None Hospital Course: 40 years old male with past medical history of alcohol abuse, alcohol withdrawal seizure, depression Patient presents asking for help for alcohol detox, his last drink was yesterday at 2 PM. He presents with Symptoms of Withdrawal Locked Shakiness, Anxiety, Lightheadedness and Tremor. Patient Does Not Feeling Well Generally. He Denies Chest Pain or Dyspnea or Abdominal Pain. No Nausea Vomiting or Diarrhea. No Fever He drinks about 1/5 and a half of 40 every day without one beer. He denies smoking or illicit drugs He feels depressed but denies suicidal or homicidal ideation Patient where he has history of withdrawal seizure, is not sure if he is on any seizure medication but he says he is on BuSpar and Zyprexa for depression. Patient was reminded that he should not drive for 6 month because of his recent history of seizure earlier this month. He verbalized understanding and acceptance Patient was treated with IV fluids and CIWA protocol with Ativan; psych was consulted with following recommendations -At this time patient DOES NOT meet criteria for inpatient psychiatric admission. -Would recommend the following medication changes/additions: Continue with Zyprexa 10 mg daily at bedtime for mood/withdrawal symptoms/insomnia. Increased Prozac 60 mg daily for mood/anxiety. buspar 10 mg twice a day when necessary for anxiety. Continue with Librium 50 mg 3 times a day for alcohol withdrawal, this can be decreased/tapered down tomorrow. -CIWA protocol with PRN Ativan for alcohol withdrawal. Continue to monitor vital signs. -thaimine and folic acid -cleaning and maintenance worker to provide patient with outpatient mental health/psychiatry resources for appropriate follow up upon discharge -Drafter Apprentice spoke with patient about substance abuse and the harmful effects on medical and mental health, patient verbally understood and agreed. -cleaning and maintenance worker to provide patient substance use treatment resources including AA/NA meetings in the community. -cleaning and maintenance worker to provide patient with access line number to call for inpatient substance rehab -Patient continues to be ambivalent about going to rehab at this time once again. Attempted several times to encourage patient to go to rehab however he continues to minimize his drinking and has poor insight into it. Patient remained stable and stabilized and he was discharged home with his mother with outpatient resources Patient Condition at Discharge: Fair Plan - Discharge Summary New Discharge Prescriptions: New OLANZapine [ZyPREXA] 10 mg PO HS #30 tab FLUoxetine HCL [PROzac] 60 mg PO DAILY #30 cap Thiamine [Vitamin B-1] 100 mg PO BID-W/MEALS tab Continue Multivitamins, Thera [Multivitamin (formulary)] 1 tab PO DAILY Biotin 5 mg PO DAILY busPIRone HCl [Buspar] 10 mg PO BID PRN #30 tab PRN Reason: Anxiety Folic Acid 1 mg PO DAILY #15 tab FLUoxetine HCL [PROzac] 40 mg PO DAILY #30 cap Thiamine [Vitamin B-1] 100 mg PO BID-W/MEALS #30 tab OLANZapine [ZyPREXA] 7.5 mg PO HS #30 tab amLODIPine [Norvasc] 5 mg PO DAILY #30 tab Discharge Medication List Biotin 5 mg PO DAILY 07/29/20 [History] Multivitamins, Thera [Multivitamin (formulary)] 1 tab PO DAILY 07/29/20 [History] FLUoxetine HCL [PROzac] 40 mg PO DAILY #30 cap 08/06/20 [Rx] Folic Acid 1 mg PO DAILY #15 tab 08/06/20 [Rx] OLANZapine [ZyPREXA] 7.5 mg PO HS #30 tab 08/06/20 [Rx] Thiamine [Vitamin B-1] 100 mg PO BID-W/MEALS #30 tab 08/06/20 [Rx] amLODIPine [Norvasc] 5 mg PO DAILY #30 tab 08/06/20 [Rx] busPIRone HCl [Buspar] 10 mg PO BID PRN #30 tab 08/06/20 [Rx] FLUoxetine HCL [PROzac] 60 mg PO DAILY #30 cap 08/22/20 [Rx] OLANZapine [ZyPREXA] 10 mg PO HS #30 tab 08/22/20 [Rx] Thiamine [Vitamin B-1] 100 mg PO BID-W/MEALS tab 08/22/20 [Rx] Follow up Appointment(s)/Referral(s): None,Stated [Primary Care Provider] - 1-2 days Patient Instructions/Handouts: Fluoxetine (By mouth), Olanzapine (By mouth), Abuse of Alcohol (DC) Activity/Diet/Wound Care/Special Instructions: Limited activity until seen by a Diet as tolerated Follow up with [facility] as informed. Discharge Disposition: HOME SELF-CARE
== END 2020-08-22 17:20 | disposition home or self-care (01) | DRG 897 ==
LOC: EC 20:58 → 4SSUR 08-19 00:34 → 5NMEDONC 08-19 18:12
PROVIDERS: ADMIT Hospitalist; ATTEND Hospitalist
DX: F10.229 Alcohol dependence with intoxication, unspecified (principal); I10 Essential (primary) hypertension; F32.9 Major depressive disorder, single episode, unspecified; Z20.822 Contact with and (suspected) exposure to COVID-19; F10.239 Alcohol dependence with withdrawal, unspecified; F41.9 Anxiety disorder, unspecified; Z79.899 Other long term (current) drug therapy
CPT/HCPCS: 36415; 80053; 80306; 80320; 83690; 83735; 84100; 85025; 87635; 96361; 96374; 96376; 99285